=== PATIENT | female | born 1930 | race Caucasian/White ===

== ENCOUNTER 2016-07-08 14:51 | Observation (INO) ==
[2016-07-08] MEDS ORDERED: Naloxone 0.4 MG/ML INJ IVP PRN (18:31)
[2016-07-08] MEDS ORDERED: Ondansetron 4 MG/2 ML VIAL IVP PRN (18:31)
[2016-07-08] MEDS ORDERED: Acetaminophen 325 MG TABLET PO PRN (18:31)
--- NOTE | 2016-07-08 19:08 | Internal Med History&Physical ---
Date of Encounter: 07/08/16 Time of Encounter: 18:15 Internal Medicine - H&P: HPI Chief complaint: right lower extremity pain after a fall. Admitted From: Intrahospital Transfer Plans for Post Hospital Care: Transfer Snf Facility History of present illness: Ms. Macedo is a 86 year old female relatively healthy female (besides a few stabkle comorbidities) was transfered from [facility] where she was initially evaluated after a fall at [facility]. She says her leg just gave ways and she collapsed, knocking her right lower extremity to the ground. She did not lose consciousness, but was unable to arise from the fallen position. She did not hit her head. No chest pain pain, palpitation, SOB or dizziness, no diaphoresis , nausea or vomiting. No recent illness. She is being treated with Carbamazepine ER for trigeminal neuralgia. She did not not have facial pain at the time of collapse. She is FULL CODE as per discussion. She nominates her , James Mann as her NOK/POA, however, as is legally deaf, his son Kimani ([phone]) will be her emergency contact. Orthopedic surgery has been contacted, the surgeon recommends consulting podiatry rather. Medical history: Reports: arthritis, CHF, hypertension, trigeminal neuralgia, history of anemia Surgical history: Reports: appendectomy, cholecystectomy, hysterectomy Psychiatric history: Reports: anxiety Smoking Status: Never smoker Smokeless Tobacco Status: No Alcohol use: Reports: none Drug use: Reports: none Family history: Unable to obtain, patient is in pain. ROS: A 10-point ROS was performed, positives and relevant negatives are detailed, system-symptom not mentioned is assumed negative unless otherwise stated. Vital Signs Temperature 98.1 F 07/08/16 12:59 Pulse Rate 91 07/08/16 12:59 Respiratory Rate 20 07/08/16 12:59 Blood Pressure 179/134 07/08/16 12:59 O2 Sat by Pulse Oximetry 97 07/08/16 12:59 Temperature 98.1 F 07/08/16 13:05 Pulse Rate 78 07/08/16 14:44 Respiratory Rate 17 07/08/16 14:44 Blood Pressure 172/87 07/08/16 14:44 O2 Sat by Pulse Oximetry 94 L 07/08/16 14:44 O/E Acutely distressed patient, from pain. Elderly HEENT: not pale, anicteric, afebrile, acyanotic., trachea is central, no JVD, no cervical or jugular lymphadenopathy. Chest: CTAB, Heart: RRR, HS1/2, no murmur Abdomen: soft, vague epigastric tenderness, not distended. 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 Skin: No active skin lesion Extremities: right akle in a splint, digital cappillary refill<2 sec. Lab Results 07/08/16 07/08/16 07/08/16 Range/Units 13:12 13:12 13:12 WBC 4.5 (4.3-11.1) K/mcL RBC 3.80 L (3.82-4.97) M/mcL Hgb 11.8 (11.5-15.4) g/dL Hct 35.2 L (35.3-44.9) % MCV 92.6 (83.0-100.0) fL MCH 31.1 (28.0-33.3) pg MCHC 33.5 (31.6-35.5) g/dL RDW 12.0 (11.5-14.5) % Plt Count 183 (140-400) K/mcL MPV 10.1 (9.4-12.4) fL Immature Gran % 0.4 (0-4) % Seg Neutrophils % 71.5 % Lymphocytes % 17.6 % Monocytes % 7.1 % Eosinophils % 2.7 % Basophils % 0.7 % Neutrophils # 3.2 (1.6-8.9) K/mcL Lymphocytes # 0.8 (0.6-4.6) K/mcL Monocytes # 0.3 (0.0-1.3) K/mcL Eosinophils # 0.1 (0.0-0.6) K/mcL Basophils # 0.0 (0.0-0.2) K/mcL PT 10.8 (9.4-12.1) Seconds INR 1.0 APTT 32.4 (26.0-36.0) Seconds Sodium 143 (136-145) mEq/L Potassium 3.0 L (3.5-4.5) mEq/L Chloride 103 (98-109) mEq/L Carbon Dioxide 26 (19-29) mEq/L BUN 19 (7-20) mg/dL Creatinine 1.24 H (0.57-1.11) mg/dL Est GFR ( Amer) 50 L (> 60) Est GFR (Non-Af Amer) 41 L (> 60) BUN/Creatinine Ratio 15 (6-26) Glucose 108 H (70-99) mg/dL Calculated Osmolality 299 (280-300) Calcium 9.3 (8.6-10.8) mg/dL Troponin I (0-0.03) ng/mL 07/08/16 Range/Units 13:12 WBC (4.3-11.1) K/mcL RBC (3.82-4.97) M/mcL Hgb (11.5-15.4) g/dL Hct (35.3-44.9) % MCV (83.0-100.0) fL MCH (28.0-33.3) pg MCHC (31.6-35.5) g/dL RDW (11.5-14.5) % Plt Count (140-400) K/mcL MPV (9.4-12.4) fL Immature Gran % (0-4) % Seg Neutrophils % % Lymphocytes % % Monocytes % % Eosinophils % % Basophils % % Neutrophils # (1.6-8.9) K/mcL Lymphocytes # (0.6-4.6) K/mcL Monocytes # (0.0-1.3) K/mcL Eosinophils # (0.0-0.6) K/mcL Basophils # (0.0-0.2) K/mcL PT (9.4-12.1) Seconds INR APTT (26.0-36.0) Seconds Sodium (136-145) mEq/L Potassium (3.5-4.5) mEq/L Chloride (98-109) mEq/L Carbon Dioxide (19-29) mEq/L BUN (7-20) mg/dL Creatinine (0.57-1.11) mg/dL Est GFR ( Amer) (> 60) Est GFR (Non-Af Amer) (> 60) BUN/Creatinine Ratio (6-26) Glucose (70-99) mg/dL Calculated Osmolality (280-300) Calcium (8.6-10.8) mg/dL Troponin I 0.00 (0-0.03) ng/mL Ankle X-Ray 07/08/16 12:59 No acute bony abnormalities. Diffuse subcutaneous edema about the ankle, nonspecific. Diffuse bone demineralization. Degenerative changes to the midfoot. Ankle X-Ray 07/08/16 12:59 Acute traumatic closed fracture dislocation of the ankle mortise. Associated soft tissue swelling and subcutaneous edema. Diffuse bone demineralization. Degenerative changes to the midfoot. Knee X-Ray 07/08/16 12:59 No evidence of fracture on the right. Questionable finding on the left in the lateral view involving the posterior aspect of the lateral tibial plateau. If patient has significant left knee pain or focal tenderness in this area, further evaluation with CT may be helpful. Ankle X-Ray 07/08/16 14:18 Interval reduction of acute ankle fracture-dislocation with near anatomic alignment. IMP Fracture dislocation of right ankle mortise, s/p closed reduction Mechanical fall Prabable preceding vagal episode or dependent venous pooling causing collapse Hypokalemia Chronic morbidities Hypertension Chronic gravitation edema Trigeminal neuralgia Osteoporosis PLAN Admit Optimal pain control Consult podiatry and orthopedic surgery DVT/GI prophylaxis Replete potassium العراقي catheter. Continue other medications of chronic morbidities. Past Med Surg Social Fam HX - Past Medical History Medical history: arthritis, CHF, hypertension, other Psychiatric history: anxiety - Past Surgical History Surgical History: appendectomy, cholecystectomy, hysterectomy - Social History Smoking Status: Never smoker Smokeless Tobacco Status: No Alcohol use: none Drug use: none Internal Medicine - H&P: Meds Furosemide [Lasix] 20 mg PO QPM 07/07/15 [History] Lisinopril [Zestril] 40 mg PO DAILY 07/07/15 [History] Potassium Chloride [Klor-Con Sprinkle] 10 meq PO DAILY 07/07/15 [History] Amlodipine [Norvasc] 7.5 mg PO DAILY 06/16/16 [History] CarBAMazepine [Carbamazepine ER] 400 mg PO Q12H 07/08/16 [History] Furosemide [Lasix] 40 mg PO QAM 07/08/16 [History] Tramadol HCl [Ultram] 50 mg PO TID PRN 07/08/16 [History] Allergies baclofen Allergy (Verified 07/08/16 15:14) Hives clindamycin Allergy (Verified 07/08/16 15:14) Hives clonidine Allergy (Verified 07/08/16 15:14) Hives codeine Allergy (Verified 07/08/16 15:14) Hives hydrocodone [From Vicodin] Allergy (Verified 07/08/16 15:14) Hives lovastatin Allergy (Verified 07/08/16 15:14) Hives gabapentin Adverse Reaction (Verified 06/16/16 00:22) Shakiness All Systems PM: A 10-system review of systems was performed and is negative for pertinent findings except as documented above in the HPI. - Constitutional Vitals: Temp Pulse Resp BP Pulse Ox 98 F 97 18 170/97 95 07/08/16 16:36 07/08/16 16:36 07/08/16 16:36 07/08/16 16:36 07/08/16 16:36
[2016-07-08] MEDS ORDERED: *HR* OxyCODONE Immed Rel 5 MG TABLET PO SCH (20:00)
[2016-07-08] MEDS ORDERED: traMADol 50 MG TABLET PO SCH (21:00)
[2016-07-08] MEDS: carBAMazepine 200 MG TABLET PO SCH (21:20)
[2016-07-08] MEDS: *HR* HYDROmorphone (PF) 1 MG/ML SYRINGE IVP PRN (22:41)
[2016-07-09] MEDS: *HR* HYDROmorphone (PF) 1 MG/ML SYRINGE IVP PRN ×2 (02:54→20:43)
[2016-07-09] MEDS: traMADol 50 MG TABLET PO PRN (06:18)
[2016-07-09 06:20] LABS: Basophils % 0.4 %; Eosinophils # 0.1 K/mcL (0.0-0.6); Eosinophils % 1.9 %; Hematocrit 32.6 % (35.3-44.9); Hemoglobin 10.6 g/dL (11.5-15.4); Immature Granulocytes % 0.2 % (0-4); Lymphocytes # 0.5 K/mcL (0.6-4.6); Mean Corpuscular HGB Conc 32.5 g/dL (31.6-35.5); Mean Corpuscular Hemoglobin 30.4 pg (28.0-33.3); Mean Corpuscular Volume 93.4 fL (83.0-100.0); Monocytes # 0.5 K/mcL (0.0-1.3); Monocytes % 10.6 %; Neutrophils # 3.6 K/mcL (1.6-8.9); Platelet Count 154 K/mcL (140-400); Red Blood Count 3.49 M/mcL (3.82-4.97); Red Cell Distribution Width 12.1 % (11.5-14.5); Segmented Neutrophils % 76.9 %
[2016-07-09] MEDS: carBAMazepine 200 MG TABLET PO SCH ×2 (06:24→19:12)
[2016-07-09 06:32] LABS: BUN/Creatinine Ratio 16 (6-26); Blood Urea Nitrogen 14 mg/dL (7-20); Calcium 8.9 mg/dL (8.6-10.8); Carbon Dioxide 29 mEq/L (19-29); Chloride 106 mEq/L (98-109); Glucose 126 mg/dL (70-99); Osmolality,Calculated 300 (280-300); Potassium 3.6 mEq/L (3.5-4.5); Sodium 144 mEq/L (136-145); eGFR For African Americans > 60 (> 60); eGFR For Non-African Americans > 60 (> 60)
[2016-07-09 06:45] LABS: Prothrombin Time 10.4 Seconds (9.4-12.1)
[2016-07-09 06:48] LABS: Activated Partial Thrombo Time 30.6 Seconds (26.0-36.0)
[2016-07-09] MEDS: Lisinopril 20 MG TABLET PO SCH (08:24)
[2016-07-09] MEDS: Famotidine 20 MG TABLET PO SCH (08:24)
[2016-07-09] MEDS: Furosemide 40 MG TABLET PO SCH (08:24)
[2016-07-09] MEDS: amLODIPine 5 MG TABLET PO SCH (08:25)
[2016-07-09] MEDS: *HR* Heparin 5,000 UNIT/ML VIAL SQ SCH ×2 (08:36→21:30)
--- NOTE | 2016-07-09 10:06 | Internal Med Progress Note ---
Date of Encounter: 07/09/16 Time of Encounter: 10:03 - Assessment and plan (1) Fracture dislocation of right ankle Current Visit: No Status: Acute Assessment and plan: Continue pain control Patient scheduled for surgical correction by Podiatry later today PT/OT after surgery supportive care (2) Fall Current Visit: Yes Status: Acute Assessment and plan: maintain fall precautions PT/OT eval after surgery Qualifiers: Encounter type: initial encounter Qualified Code(s): W19.XXXA - Unspecified fall, initial encounter (3) Hypertension Current Visit: Yes Status: Chronic Assessment and plan: BP within acceptable range continue home medications Qualifiers: Hypertension type: essential hypertension Qualified Code(s): I10 - Essential (primary) hypertension (4) Osteoporosis Current Visit: Yes Status: Chronic (5) Trigeminal neuralgia Current Visit: Yes Status: Chronic Assessment and plan: continue home medications (6) Hypokalemia Current Visit: Yes Status: Resolved Assessment and plan: continue to monitor electrolytes and replace as needed (7) DVT prophylaxis Current Visit: Yes Status: Acute Assessment and plan: Heparin SQ (8) CHF (congestive heart failure) Current Visit: Yes Status: Chronic Assessment and plan: Not in acute exacerbation continue home medications Qualifiers: Congestive heart failure type: unspecified congestive heart failure type Congestive heart failure chronicity: chronic Qualified Code(s): I50.9 - Heart failure, unspecified - Subjective Interval history: Patient seen and examined at bedside. Resting in bed, states the pain is currently well controlled. Podiatry to take patient to the OR later today. - Constitutional Vitals: Temp Pulse Resp BP Pulse Ox 97.7 F 78 16 139/75 93 L 07/09/16 06:49 07/09/16 06:49 07/09/16 06:49 07/09/16 06:49 07/09/16 06:49 General appearance: Present: A&O X 3, no acute distress (drowsy from the pain medications), answers questions appropriately - Head Head exam: Present: atraumatic, normocephalic - Eye Eye exam: Present: normal appearance, conjuntiva pink, sclera anicteric - Respiratory Respiratory exam: Present: CTAB. Absent: respiratory distress, wheezes - Cardiovascular Cardiovascular exam: Present: RRR, +S1, +S2 - GI/Abdominal GI/Abdominal exam: Present: normal bowel sounds, soft. Absent: distended, tenderness - Extremities Exam Extremities exam: Present: warm, radial pulses palpable and symetrical. Absent : pedal edema (RLE placed in cast/splint) - Neurological Exam Neurological exam: Present: alert, oriented X3 - Psychiatric Psychiatric exam: Present: normal affect, normal mood Internal Medicine: Result - Labs CBC & Chem 7: 07/09/16 05:52 07/09/16 05:52 Labs: Short CBC 07/09/16 Range/Units 05:52 WBC 4.7 (4.3-11.1) K/mcL Hgb 10.6 L (11.5-15.4) g/dL Hct 32.6 L (35.3-44.9) % Plt Count 154 (140-400) K/mcL Neutrophils # 3.6 (1.6-8.9) K/mcL BMP 07/09/16 05:52 Sodium 144 Potassium 3.6 Chloride 106 Carbon Dioxide 29 BUN 14 Creatinine 0.86 Glucose 126 H Calcium 8.9 - ABG Interpretation ABG results: PT/INR, D-dimer PT 10.4 Seconds (9.4-12.1) 07/09/16 05:52 Consult Discharge Plan - Plan Referrals: Estrada Hooper DO [Primary Care Provider] -
--- NOTE | 2016-07-09 12:08 | Podiatry Consult Note ---
Date of Encounter: 07/09/16 Time of Encounter: 12:04 Assessment and Plan (1) Fracture dislocation of right ankle Current visit: No Status: Acute The patient and her and son who are at bedside were instructed that she needs open reduction, internal fixation. The patient and her family relates that she does not significant amount of walking and would like to return to her walking status if possible. I instructed the patient that due to her age there are inherent risks with surgical intervention. The patient relates that she would like her ankle fixed that she could continue walking. I explained that if she does not have it fixed there is significant chances of severe arthritis and nonhealing. I also instructed that with surgery there are also risks but that if we fixate the ankle she has a better chance of having mobility after surgery. The surgery discussed was open reduction, internal fixation of the right ankle fracture.Patient was informed of the risks and complications of surgery. These may include but are not limited to the following; nerve damage, numbness, tingling, RSD/CRPS, loss of motor function, loss of toe, loss of limb , loss of life, ischemia, wound healing issues, infection, scarring, keloid formation, continued pain, arthritis, non-union, mal-union, prominent hardware, displaced hardware, reaction to hardware, the need to remove hardware, bruising , continued limp, the need for future surgery, over correction, under correction , chronic swelling, the need for physical therapy, stiffness of joints, ulceration, slow healing, wound dehiscence, reaction to implant, reaction to sutures. The patient was informed of the possible conservative treatments available which may include but are not limited to the following: Orthotics, bracing, non -weight bearing, physical therapy, padding, taping, steroid injections, NSAIDS, casting. The patient was given the option to seek a second opinion. It was explained that surgery is an art and not an exact science therefore results cannot be guaranteed. All the patients questions and concerns were addressed. Patient agrees to have the surgery despite the possible risks and complications. Absolutely no guarantees were given or implied. History of Present Illness Chief complaint: right ankle fracture HPI: Ms. Macedo is a 86 year old female who was walking through [employer] and into her ankle. Patient relates that her hurt severely. Patient relates that she was told that she fractured it. Past Med Surg Social Fam HX - Past Medical History Medical history: arthritis, CHF, hypertension, other Psychiatric history: anxiety - Past Surgical History Surgical History: appendectomy, cholecystectomy, hysterectomy - Social History Smoking Status: Never smoker Smokeless Tobacco Status: No Alcohol use: none Drug use: none Medications and Allergies Furosemide [Lasix] 20 mg PO QPM 07/07/15 [History] Lisinopril [Zestril] 40 mg PO DAILY 07/07/15 [History] Potassium Chloride [Klor-Con Sprinkle] 10 meq PO DAILY 07/07/15 [History] Amlodipine [Norvasc] 7.5 mg PO DAILY 06/16/16 [History] CarBAMazepine [Carbamazepine ER] 400 mg PO Q12H 07/08/16 [History] Furosemide [Lasix] 40 mg PO QAM 07/08/16 [History] Tramadol HCl [Ultram] 50 mg PO TID PRN 07/08/16 [History] Allergies baclofen Allergy (Verified 07/08/16 15:14) Hives clindamycin Allergy (Verified 07/08/16 15:14) Hives clonidine Allergy (Verified 07/08/16 15:14) Hives codeine Allergy (Verified 07/08/16 15:14) Hives hydrocodone [From Vicodin] Allergy (Verified 07/08/16 15:14) Hives lovastatin Allergy (Verified 07/08/16 15:14) Hives gabapentin Adverse Reaction (Verified 06/16/16 00:22) Shakiness All Systems Reviewed: A 10-system review of systems was performed and is negative for pertinent findings except as documented above in the HPI. Physical Exam - Constitutional Vitals: Temp Pulse Resp BP Pulse Ox 98.0 F 61 18 171/77 96 07/09/16 11:14 07/09/16 11:14 07/09/16 11:14 07/09/16 11:14 07/09/16 11:14 Exam: The patient is awake, alert, and oriented 3. The patient has pain with palpation to the right ankle. The right ankle is currently in a posterior splint. Capillary fill time is intact to the digits. No open lesions are visible however the splint was left intact for some stability. Radiographic exam demonstrates a bimalleolar ankle fracture with significant dislocation. Severe osteopenia is noted. Results - Labs Result Diagrams: 07/09/16 05:52 07/09/16 05:52 Labs: Abnormal lab results RBC 3.49 M/mcL (3.82-4.97) L 07/09/16 05:52 Hgb 10.6 g/dL (11.5-15.4) L 07/09/16 05:52 Hct 32.6 % (35.3-44.9) L 07/09/16 05:52 Lymphocytes # 0.5 K/mcL (0.6-4.6) L 07/09/16 05:52 Glucose 126 mg/dL (70-99) H 07/09/16 05:52 H & H 07/09/16 Range/Units 05:52 Hgb 10.6 L (11.5-15.4) g/dL Hct 32.6 L (35.3-44.9) % All other labs normal. Consult Discharge Plan - Plan Referrals: Estrada Hooper DO [Primary Care Provider] -
[2016-07-09] MEDS ORDERED: Bupivacaine/Clonidine Syringe 1 EACH SYRINGE ONE (15:33)
--- NOTE | 2016-07-09 15:34 | Anesthesia Evaluation PreOp ---
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 (trigeminal neuralgia) Other Medical History: Other (oa) Anesthesia History: No Prior Anesthetic Complications, Past Anesthesia (appy, cholecyst, hysterect) Alcohol Use: none Drug use: none Medications and Allergies Furosemide [Lasix] 20 mg PO QPM 07/07/15 [History] Lisinopril [Zestril] 40 mg PO DAILY 07/07/15 [History] Potassium Chloride [Klor-Con Sprinkle] 10 meq PO DAILY 07/07/15 [History] Amlodipine [Norvasc] 7.5 mg PO DAILY 06/16/16 [History] CarBAMazepine [Carbamazepine ER] 400 mg PO Q12H 07/08/16 [History] Furosemide [Lasix] 40 mg PO QAM 07/08/16 [History] Tramadol HCl [Ultram] 50 mg PO TID PRN 07/08/16 [History] Allergies baclofen Allergy (Verified 07/08/16 15:14) Hives clindamycin Allergy (Verified 07/08/16 15:14) Hives clonidine Allergy (Verified 07/08/16 15:14) Hives codeine Allergy (Verified 07/08/16 15:14) Hives hydrocodone [From Vicodin] Allergy (Verified 07/08/16 15:14) Hives lovastatin Allergy (Verified 07/08/16 15:14) Hives gabapentin Adverse Reaction (Verified 06/16/16 00:22) Shakiness Anesthesia Results - Labs 07/09/16 05:52 07/09/16 05:52 - Imaging EKG: report reviewed (sb)
--- NOTE | 2016-07-09 15:37 | Anesthesia Evaluation PreOp ---
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 (trigeminal neuralgia) Other Medical History: Other (oa) Anesthesia History: No Prior Anesthetic Complications, Past Anesthesia Alcohol Use: none Drug use: none Medications and Allergies Furosemide [Lasix] 20 mg PO QPM 07/07/15 [History] Lisinopril [Zestril] 40 mg PO DAILY 07/07/15 [History] Potassium Chloride [Klor-Con Sprinkle] 10 meq PO DAILY 07/07/15 [History] Amlodipine [Norvasc] 7.5 mg PO DAILY 06/16/16 [History] CarBAMazepine [Carbamazepine ER] 400 mg PO Q12H 07/08/16 [History] Furosemide [Lasix] 40 mg PO QAM 07/08/16 [History] Tramadol HCl [Ultram] 50 mg PO TID PRN 07/08/16 [History] Allergies baclofen Allergy (Verified 07/08/16 15:14) Hives clindamycin Allergy (Verified 07/08/16 15:14) Hives clonidine Allergy (Verified 07/08/16 15:14) Hives codeine Allergy (Verified 07/08/16 15:14) Hives hydrocodone [From Vicodin] Allergy (Verified 07/08/16 15:14) Hives lovastatin Allergy (Verified 07/08/16 15:14) Hives gabapentin Adverse Reaction (Verified 06/16/16 00:22) Shakiness - Meds/Allergy Pre-op Review Medications Reviewed: Yes Allergies Reviewed: Yes Beta Blockers on Current Med List: No Anesthesia Results - Labs 07/09/16 05:52 07/09/16 05:52 - Imaging EKG: report reviewed (sb) Anesthesia Exam Height: 1.57 Weight: 74 NPO (# of Hours): >8 - HEENT Pupil (Motor): Pupils equal, EOMI Mallampati: II Teeth: Poor dentition Oral Opening: Less than or equal to 3 - PHYSICAL FITNESS TEACHER LOC: Oriented (pt is oriented to person/place/time/procedure) PHYSICAL FITNESS TEACHER Motor: Deficit RUE, Deficit LUE, Deficit RLE, Deficit LLE, Deficit Face PHYSICAL FITNESS TEACHER Sensory: Deficit: RUE, LUE, RLE, LLE, Face - Cardiac Rhythm: Regular Murmur: None - Pulmonary Breath Sounds: bilateral Clear Respiratory Effort: Symmetrical Anesthesia Assess/Plan ASA Score: 3 Modified [place] Scale for Level of Consciousness: Cooperative, oriented, and tranquil Anesthetic Plan: Regional Monitoring Plan: Standard Monitors Recovery Plan: Other
[2016-07-09] MEDS ORDERED: *HR* Midazolam HCl 2 MG/2 ML VIAL ONE (15:50)
[2016-07-09] MEDS ORDERED: *HR* Propofol 200 MG/20 ML VIAL IVP ONE ×2 (15:54→16:36)
--- NOTE | 2016-07-09 16:03 | Anesthesia Procedures ---
Date of Encounter: 07/09/16 Time of Encounter: 16:01 Procedures: Anesthesia - Nerve Block Procedure Date: 07/09/16 Time: 16:01 Allergies/Adv Reactions: see chart Pre-op Diagnosis: r ankle fx Surgical Procedure: r ankle orif Checklist: Correct Patient Identifier, Correct procedure, History checked Correct side: Right Blood Thinner: No Monitor Applied: EKG, BP, Pulse Oximetry Supplemental Oxygen via Nasal Cannula (L/min): 2 Sedation: Versed (mg): 2 Indication: Primary Anesthesia Block Type: Popliteal (40), Other (saph/5) Catheter placed: No Sterile Technique: Yes Ultrasound used: Yes Anatomy identified: Yes Visual spread of Local: Yes Neuro Stimulation: No Blood on Needle Aspiration: No Smooth Injection of Local: Yes Pain with Injection of Local: No Prep: Chlorhexadine Needle: 21 x 100 mm Stimuplex Local: 0.25% Bupivicaine w/Clonidine 20 mcg/cc Volume (cc): 45 Number of Attempts: 1 Complications: None/effective block Vitals: see rn note Comments: Block performed by ASSOCIATE TEAM PHYSICIAN Barreto
[2016-07-09] MEDS: Ringers Solution, Lactated 1,000 ML IVC SCH (16:04)
[2016-07-09] MEDS ORDERED: *HR* FentaNYL (PF) 100 MCG/2 ML VIAL ONE (17:40)
--- NOTE | 2016-07-09 18:44 | Anesthesia Evaluation Post Op ---
Date of Encounter: 07/09/16 Time of Encounter: 18:43 - Vital Signs Vital Signs: Vital Signs/O2 Sat/Glucose, Most Current Temp Pulse Resp BP Pulse Ox 07/09/16 18:36 60 14 110/63 94 L 07/09/16 18:26 97.2 F L 62 14 120/65 93 L 07/09/16 18:16 67 14 114/65 94 L 07/09/16 18:06 67 16 114/70 92 L 07/09/16 17:56 97.0 F L 84 16 138/89 95 - Lungs Lungs: Clear Ascult./Percussion - Airway Airway: Non-obstructed - Cardiovascular Regular Rate - Mental Status Mental Status: Asleep with brisk response to light stimulation - Pain Pain Scale: 2 - Nausea Vomiting Nausea Vomiting: Not Present - Hydration Hydration: NPO Notes: 07/09/16 18:[address] on pulse ox overnight with NC titrate >92% - Discharge PostOp Status: Transfer Patient to floor
[2016-07-09] MEDS: Furosemide 20 MG TABLET PO SCH (19:12)
--- NOTE | 2016-07-09 22:01 | Operative Note ---
Date of procedure: 07/09/16 Pre-op diagnosis: right ankle subluxation/dislocation fracture, bimalleolar Post-op diagnosis: same Procedure: Open reduction, internal fixation of bimalleolar ankle fracture with repair of subluxation/syndesmotic repair. Implants: Chivo plates and screws. Complications: None, other than soft bone and significant osteoporosis. Anesthesia: [facility] [place] Surgeon: Gabe Byrd Estimated blood loss (cc): 10 Condition: stable Disposition: PACU Procedure in Detail: The patient was administered IV antibiotics. The patient was transported to the operative room and placed on operating table in the supine position. Following general anesthesia the foot was scrubbed prepped and draped in the usual aseptic fashion. A timeout was performed. The lower extremity was raised to 60 degrees for hemostasis and exsanguinated utilizing an Esmarch bandage. The pneumatic tourniquet was inflated. The leg was lowered to the table. There is noted to be small fracture blister formation along the lateral aspect of the ankle. The blisters were avoided as much as possible although the proximal aspect of the incision did partially contact the fracture blister. An incision was made and deepened through subcutaneous tissue with care taken to identify and retract all vital neurovascular structures.the fracture of the fibula was identified and noted to be oblique in nature. The site was reduced utilizing lobster claw and stabilized utilizing temporary fixating K wires. A neutralization plate was then applied. The bone was noted to be significantly soft consistent with end-stage osteoporosis. After the neutralization plate was applied the syndesmosis was then tested and noted to be insufficient. A syndesmotic screw was then placed to repair the syndesmosis. 3 other syndesmotic screws were placed in an attempt to build a more stable construct from her significantly poor bone quality. An incision was made over the medial malleolus and deepened through subcutaneous tissues with care taken to identify and retract all vital neurovascular structures. The medial malleolus was reduced and reduction was maintained utilizing 2 screw fixation. The bone at the medial malleolus was noted to be significantly soft as well. The incision sites were then irrigated with copious amounts of normal saline and closed in a layered fashion. A dry sterile dressing was applied. The pneumatic tourniquet was deflated and a hyperemic response was noted to all digits. The patient was placed in a posterior splint. The patient tolerated the procedure and anesthesia well and was transported to the recovery room with vital signs stable and vascular status intact to both feet. The patient will be readmitted to the floor until she is stable to return home The patient will keep the dressings clean, dry, intact until the follow-up appointment in 1-2 weeks. The patient's weightbearing status will be strict nonweightbearing. The patient would benefit from a short course of oral antibiotics due to the fracture blister formation.
[2016-07-10] MEDS: *HR* HYDROmorphone (PF) 1 MG/ML SYRINGE IVP PRN ×3 (04:21→23:55)
[2016-07-10] MEDS: *HR* Heparin 5,000 UNIT/ML VIAL SQ SCH ×2 (05:50→17:05)
[2016-07-10] MEDS: carBAMazepine 200 MG TABLET PO SCH ×2 (05:53→17:02)
[2016-07-10] MEDS: Ringers Solution, Lactated 1,000 ML IVC SCH (05:58)
[2016-07-10 06:07] LABS: Basophils % 0.3 %; Eosinophils # 0.1 K/mcL (0.0-0.6); Eosinophils % 2.3 %; Hematocrit 31.8 % (35.3-44.9); Hemoglobin 10.4 g/dL (11.5-15.4); Immature Granulocytes % 0.3 % (0-4); Lymphocytes # 0.5 K/mcL (0.6-4.6); Lymphocytes % 7.9 %; Mean Corpuscular HGB Conc 32.7 g/dL (31.6-35.5); Mean Corpuscular Hemoglobin 30.8 pg (28.0-33.3); Mean Corpuscular Volume 94.1 fL (83.0-100.0); Mean Platelet Volume 10.3 fL (9.4-12.4); Monocytes # 0.6 K/mcL (0.0-1.3); Neutrophils # 4.9 K/mcL (1.6-8.9); Platelet Count 156 K/mcL (140-400); Red Blood Count 3.38 M/mcL (3.82-4.97); Red Cell Distribution Width 11.9 % (11.5-14.5); Segmented Neutrophils % 79.2 %
[2016-07-10 06:23] LABS: BUN/Creatinine Ratio 13 (6-26); Blood Urea Nitrogen 11 mg/dL (7-20); Calcium 8.9 mg/dL (8.6-10.8); Carbon Dioxide 26 mEq/L (19-29); Chloride 105 mEq/L (98-109); Glucose 103 mg/dL (70-99); Magnesium 1.6 mg/dL (1.6-2.6); Osmolality,Calculated 296 (280-300); Phosphorous 3.2 mg/dL (2.3-4.7); Potassium 3.3 mEq/L (3.5-4.5); Sodium 143 mEq/L (136-145); eGFR For African Americans > 60 (> 60); eGFR For Non-African Americans > 60 (> 60)
[2016-07-10] MEDS: Furosemide 40 MG TABLET PO SCH (08:08)
[2016-07-10] MEDS: amLODIPine 5 MG TABLET PO SCH (08:08)
[2016-07-10] MEDS: Lisinopril 20 MG TABLET PO SCH (08:08)
[2016-07-10] MEDS: Famotidine 20 MG TABLET PO SCH (08:09)
[2016-07-10] MEDS: Furosemide 20 MG TABLET PO SCH (17:02)
--- NOTE | 2016-07-10 17:05 | Podiatry Progress Note ---
Date of Encounter: 07/10/16 Time of Encounter: 12:00 - Assessment and Plan (1) Fracture dislocation of right ankle Current Visit: No Status: Acute Examined at bedside Dressing and splint intact Leave dressing intact at this time Patient ok to discharge per podiatry Please send with Bactrim DS BID x10 days PO- fracture blisters present Follow up in clinic in 1 week Patient awaiting ECF placement- spoke with SW- family meeting at 3pm Non weight bearing to RLE While in bed elevate RLE above level of heart Monitor for pressure to heel Call with any fevers, chills or flu like symptoms Call with any operative site complications Subjective Interval history: Day #1 post op Open reduction, internal fixation of bimalleolar ankle fracture with repair of subluxation/syndesmotic repair with Dr. Byrd. Patient resting comfortably at this time, just up to BSC and returned to bed. Complains of pain, vague and states her "whole body hurts" Dressing intact to surgical site, posterior splint intact. at bedside. Patient denies any fevers, chills, flu like symptoms or calf pain. Objective - Vital Signs Vital Signs: Vital Signs Temp Pulse Resp BP Pulse Ox 07/10/16 16:05 97.9 F 71 22 145/75 97 07/10/16 10:57 98.5 F 73 16 139/79 95 07/10/16 07:21 98.2 F 58 16 157/78 95 07/10/16 05:17 98.0 F 55 17 136/69 93 L 07/10/16 01:09 98.0 F 54 17 155/81 97 07/09/16 22:03 97 07/09/16 18:54 97.9 F 63 17 155/73 95 07/09/16 18:44 97.0 F L 63 14 112/66 96 07/09/16 18:36 60 14 110/63 94 L 07/09/16 18:26 97.2 F L 62 14 120/65 93 L 07/09/16 18:16 67 14 114/65 94 L 07/09/16 18:06 67 16 114/70 92 L 07/09/16 17:56 97.0 F L 84 16 138/89 95 Intake and Output 07/10/16 07/10/16 07/10/16 07:59 15:59 23:59 Intake Total 1000 / 1000 120 / 120 200 / 200 Output Total 1350 / 1350 450 / 450 Balance 1000 / 1000 -1230 / -1230 -250 / -250 Intake: IV Fluids 1000 / 1000 Lactated Ringers 1,000 ML 1000 / 1000 @ 20 mls/hr IVC .Q24H CLAUDIA Rx#:[id number] Oral 120 / 120 200 / 200 Output: Urine 1350 / 1350 450 / 450 Other: # Voids 1 - Exam Exam: Podiatry General Exam: General appearance: alert awake oriented X 3. Calm and pleasant, no acute distress.. Vascular: Pedal pulses +2/4 DP/PT , No evidence of cyanosis, pallor or rubor, Edema graded at 1+/4, Skin Temperature warm, No calf pain with manual compression. capillary refill time is immediate to digits. Neurologic: Sensation intact with light touch to foot. . Slight movement intact to toes Postop Exam: Dressing and posterior splint to remain intact at this time. Cap refill time <3 seconds to toes, sensation intact, movement intact. All as expected. No calf pain with manual compression Toes warm to touch - Lab Result Diagrams: 07/11/16 04:41 07/11/16 04:41 Labs: Abnormal lab results RBC 3.38 M/mcL (3.82-4.97) L 07/10/16 05:44 Hgb 10.4 g/dL (11.5-15.4) L 07/10/16 05:44 Hct 31.8 % (35.3-44.9) L 07/10/16 05:44 Lymphocytes # 0.5 K/mcL (0.6-4.6) L 07/10/16 05:44 Potassium 3.3 mEq/L (3.5-4.5) L 07/10/16 05:44 Glucose 103 mg/dL (70-99) H 07/10/16 05:44 - VTE Documentation of Mechanical Device: Intermittent pneumatic compression device Consult Discharge Plan - Plan Additional Instructions: Please follow up with podiatry within 1 week after discharge. leave Dressing intact until your follow-up with podiatry. Please take Bactrim twice a day for total of 10 days as recommended by podiatry. follow up with her primary care physician within one week after discharge from the hospital. Please continue all usual medications as prescribed by her primary care physician. Referrals: Estrada Hooper DO [Primary Care Provider] - 10/14/16 1:00 pm Prescriptions: RX: OxyCODONE/APAP 5/325 [Percocet 5/325 MG] 1 each PO Q4HR PRN #30 tablet PRN Reason: Severe Pain Sennosides/Docusate Sodium [Senna Plus] 2 each PO BID PRN #30 tablet PRN Reason: Constipation Sulfamethoxazole/Trimeth DS [Bactrim DS] 1 each PO BID #20 tablet
--- NOTE | 2016-07-10 17:09 | Internal Med Progress Note ---
Date of Encounter: 07/10/16 Time of Encounter: 10:20 - Assessment and plan (1) Fracture dislocation of right ankle Current Visit: No Status: Acute Assessment and plan: Continue pain control S/P ORIF of bimalleolar ankle fracture with repair of subluxation/syndesmotic repair by podiatry. POD 1 patient tolerated the procedure well Podiatry consultation appreciated. PT/OT: SNF placement Social work consulted for rehab placement supportive care d/c pending rehab placement (2) Fall Current Visit: Yes Status: Acute Assessment and plan: maintain fall precautions PT/OT eval: SNF placement Qualifiers: Encounter type: initial encounter Qualified Code(s): W19.XXXA - Unspecified fall, initial encounter (3) Hypertension Current Visit: Yes Status: Chronic Assessment and plan: BP within acceptable range continue home medications Qualifiers: Hypertension type: essential hypertension Qualified Code(s): I10 - Essential (primary) hypertension (4) Osteoporosis Current Visit: Yes Status: Chronic (5) Trigeminal neuralgia Current Visit: Yes Status: Chronic Assessment and plan: continue home medications (6) Hypokalemia Current Visit: Yes Status: Resolved Assessment and plan: continue to monitor electrolytes and replace as needed (7) DVT prophylaxis Current Visit: Yes Status: Acute Assessment and plan: Heparin SQ (8) CHF (congestive heart failure) Current Visit: Yes Status: Chronic Assessment and plan: Not in acute exacerbation continue home medications Qualifiers: Congestive heart failure type: unspecified congestive heart failure type Congestive heart failure chronicity: chronic Qualified Code(s): I50.9 - Heart failure, unspecified - Subjective Interval history: Patient seen and examined at bedside. Resting in bed, states the pain is currently well controlled. s/p ORIF of bimalleolar ankle fracture with repair of subluxation/syndesmotic repair - Constitutional Vitals: Temp Pulse Resp BP Pulse Ox 97.9 F 71 22 145/75 97 07/10/16 16:05 07/10/16 16:05 07/10/16 16:05 07/10/16 16:05 07/10/16 16:05 General appearance: Present: A&O X 3, no acute distress (drowsy from the pain medications), answers questions appropriately - Head Head exam: Present: atraumatic, normocephalic - Eye Eye exam: Present: normal appearance, conjuntiva pink, sclera anicteric - Respiratory Respiratory exam: Present: CTAB. Absent: respiratory distress, wheezes - Cardiovascular Cardiovascular exam: Present: RRR, +S1 - GI/Abdominal GI/Abdominal exam: Present: normal bowel sounds, soft. Absent: distended, tenderness - Extremities Exam Extremities exam: Present: pedal edema, warm, radial pulses palpable and symetrical - Neurological Exam Neurological exam: Present: alert Internal Medicine: Result - Labs CBC & Chem 7: 07/10/16 05:44 07/10/16 05:44 Labs: Short CBC 07/10/16 Range/Units 05:44 WBC 6.2 (4.3-11.1) K/mcL Hgb 10.4 L (11.5-15.4) g/dL Hct 31.8 L (35.3-44.9) % Plt Count 156 (140-400) K/mcL Neutrophils # 4.9 (1.6-8.9) K/mcL BMP 07/10/16 05:44 Sodium 143 Potassium 3.3 L Chloride 105 Carbon Dioxide 26 BUN 11 Creatinine 0.82 Glucose 103 H Calcium 8.9 - ABG Interpretation ABG results: PT/INR, D-dimer PT 10.4 Seconds (9.4-12.1) 07/09/16 05:52 - Impressions Impressions Fluoroscopy 07/09/16 16:37 IMPRESSION: Intraprocedural fluoroscopic spot images as above. See separate procedure report for more information. D/ / Shaniqua Hawkins MD / Shaniqua Hawkins MD Interpreting Provider: Shaniqua Hawkins MD - VTE Documentation of Mechanical Device: Intermittent pneumatic compression device Consult Discharge Plan - Plan Referrals: Estrada Hooper DO [Primary Care Provider] - 10/14/16 1:00 pm
[2016-07-10] MEDS: traMADol 50 MG TABLET PO PRN (20:38)
[2016-07-11 05:02] LABS: Basophils % 0.3 %; Eosinophils # 0.1 K/mcL (0.0-0.6); Eosinophils % 1.4 %; Hematocrit 33.6 % (35.3-44.9); Hemoglobin 10.8 g/dL (11.5-15.4); Immature Granulocytes % 0.6 % (0-4); Lymphocytes # 0.8 K/mcL (0.6-4.6); Lymphocytes % 12.2 %; Mean Corpuscular HGB Conc 32.1 g/dL (31.6-35.5); Mean Corpuscular Volume 93.3 fL (83.0-100.0); Monocytes # 0.8 K/mcL (0.0-1.3); Monocytes % 11.8 %; Neutrophils # 4.8 K/mcL (1.6-8.9); Platelet Count 166 K/mcL (140-400); Red Cell Distribution Width 11.9 % (11.5-14.5); Segmented Neutrophils % 73.7 %
[2016-07-11 05:16] LABS: BUN/Creatinine Ratio 13 (6-26); Blood Urea Nitrogen 11 mg/dL (7-20); Calcium 9.2 mg/dL (8.6-10.8); Carbon Dioxide 30 mEq/L (19-29); Chloride 101 mEq/L (98-109); Glucose 104 mg/dL (70-99); Magnesium 1.7 mg/dL (1.6-2.6); Osmolality,Calculated 296 (280-300); Phosphorous 2.7 mg/dL (2.3-4.7); Potassium 3.3 mEq/L (3.5-4.5); Sodium 143 mEq/L (136-145); eGFR For African Americans > 60 (> 60); eGFR For Non-African Americans > 60 (> 60)
[2016-07-11] MEDS: carBAMazepine 200 MG TABLET PO SCH ×2 (06:31→18:34)
[2016-07-11] MEDS: *HR* Heparin 5,000 UNIT/ML VIAL SQ SCH ×2 (06:31→18:34)
[2016-07-11] MEDS: traMADol 50 MG TABLET PO PRN ×2 (06:35→22:35)
[2016-07-11] MEDS ORDERED: Potassium Chloride 40 MEQ, Lidocaine 1% 2 ML in D5% in Water 500 ML IVPB ONE (08:29)
[2016-07-11] MEDS: Furosemide 40 MG TABLET PO SCH (10:25)
[2016-07-11] MEDS: Famotidine 20 MG TABLET PO SCH (10:25)
[2016-07-11] MEDS: Lisinopril 20 MG TABLET PO SCH (10:26)
[2016-07-11] MEDS: amLODIPine 5 MG TABLET PO SCH (10:28)
--- NOTE | 2016-07-11 13:41 | Discharge Summary ---
Date of Encounter: 07/11/16 Time of Encounter: 09:30 - Discharge Diagnosis (1) Fracture dislocation of right ankle Priority: Primary Status: Acute (2) Fall Priority: Secondary Status: Acute Qualifiers: Encounter type: initial encounter Qualified Code(s): W19.XXXA - Unspecified fall, initial encounter (3) Hypertension Priority: Secondary Status: Chronic Qualifiers: Hypertension type: essential hypertension Qualified Code(s): I10 - Essential (primary) hypertension (4) Osteoporosis Priority: Secondary Status: Chronic (5) Trigeminal neuralgia Priority: Secondary Status: Chronic (6) Hypokalemia Priority: Secondary Status: Resolved (7) DVT prophylaxis Priority: Secondary Status: Acute (8) CHF (congestive heart failure) Priority: Secondary Status: Chronic Qualifiers: Congestive heart failure type: unspecified congestive heart failure type Congestive heart failure chronicity: chronic Qualified Code(s): I50.9 - Heart failure, unspecified - Discharge Medications Prescriptions: OxyCODONE/APAP 5/325 [Percocet 5/325 MG] 1 each PO Q4HR PRN #30 tablet PRN Reason: Severe Pain Sennosides/Docusate Sodium [Senna Plus] 2 each PO BID PRN #30 tablet PRN Reason: Constipation Sulfamethoxazole/Trimeth DS [Bactrim DS] 1 each PO BID #20 tablet Home Medications: Furosemide [Lasix] 20 mg PO QPM 07/07/15 [History] Lisinopril [Zestril] 40 mg PO DAILY 07/07/15 [History] Potassium Chloride [Klor-Con Sprinkle] 10 meq PO DAILY 07/07/15 [History] Amlodipine [Norvasc] 7.5 mg PO DAILY 06/16/16 [History] CarBAMazepine [Carbamazepine ER] 400 mg PO Q12H 07/08/16 [History] Furosemide [Lasix] 40 mg PO QAM 07/08/16 [History] Tramadol HCl [Ultram] 50 mg PO TID PRN 07/08/16 [History] Metoprolol [Lopressor] 25 mg PO BID tablet 07/11/16 [Rx] OxyCODONE/APAP 5/325 [Percocet 5/325 MG] 1 each PO Q4HR PRN #30 tablet 07/11/16 [Rx] Sennosides/Docusate Sodium [Senna Plus] 2 each PO BID PRN #30 tablet 07/11/16 [ Rx] Sulfamethoxazole/Trimeth DS [Bactrim DS] 1 each PO BID #20 tablet 07/11/16 [Rx] Allergies/Adverse Reactions: Allergies baclofen Allergy (Verified 07/08/16 15:14) Hives clindamycin Allergy (Verified 07/08/16 15:14) Hives clonidine Allergy (Verified 07/08/16 15:14) Hives codeine Allergy (Verified 07/08/16 15:14) Hives hydrocodone [From Vicodin] Allergy (Verified 07/08/16 15:14) Hives lovastatin Allergy (Verified 07/08/16 15:14) Hives gabapentin Adverse Reaction (Verified 06/16/16 00:22) Shakiness Date of admission: 07/08/16 16:19 Primary care physician: Estrada Hooper DO Consults: 07/08/16 18:58 Consult to Podiatry [CONS] Routine Consulting Provider: Podiatry [facility] Reason for Consult: fracture/dislocation right ankle. Call Completed: No 07/10/16 10:03 Consult to Occupational Therapy [CONS] Stat Comment: Evaluate, develop and implement POC Consult to Physical Therapy [CONS] Stat Comment: Evaluate, develop and implement POC Consult to [employer] [CONS] Stat Reason for SW Consult: discharge planning Discharging clinician: Pearl Ramos Anticipated date of discharge: 07/11/16 - Patient Status Disposition: Transfer SNF Condition: Fair Functional capacity at discharge: uses cane/walker Overall status at discharge: patient is progressing back to baseline - Discharge Instructions Follow Up With: Estrada Hooper DO [Primary Care Provider] - 10/14/16 1:00 pm Additional Instructions: Please follow up with podiatry within 1 week after discharge. leave Dressing intact until your follow-up with podiatry. Please take Bactrim twice a day for total of 10 days as recommended by podiatry. follow up with her primary care physician within one week after discharge from the hospital. Please continue all usual medications as prescribed by her primary care physician. - Diet and Activity Activity: as per physical therapy Diet: advance to your usual diet, low salt diet Hospital course: Ms. Macedo is a 86 year old female with past medical history of CHF, hypertension, trigeminal neuralgia, anemia who was transferred from [facility] for evaluation of pain status post fall. On further evaluation patient was noted to have right ankle fracture for which podiatry was consulted. Patient underwent ORIF of bimalleolar ankle fracture with repair of subluxation/ syndesmotic repair by podiatry. She tolerated the procedure well without any postop complications. As per podiatry evaluation, patient was noted to have blisters on her feet and will benefit from oral antibiotic therapy for 10 days after discharge. Patient was seen by physical therapy, and a rehabilitation placement was recommended. At this time patient is medically stable and will be discharged to SNF with follow-up with PCP in podiatry. Patient is to continue on oral antibiotics, pain control, and dressing is to remain intact until her follow-up with podiatry. Patient and family agree with patient's diagnoses, discharge care and plan. - Time Spent with Patient Total time spent providing and/or coordinating discharge services: - Constitutional Vitals: Temp Pulse Resp BP Pulse Ox 97.0 F L 73 16 126/83 98 07/11/16 10:48 07/11/16 10:48 07/11/16 10:48 07/11/16 10:48 07/11/16 10:55 General appearance: Present: A&O X 3, no acute distress, answers questions appropriately - Head Head exam: Present: atraumatic, normocephalic - Eye Eye exam: Present: normal appearance, conjuntiva pink, sclera anicteric - Respiratory Respiratory exam: Present: CTAB. Absent: respiratory distress, wheezes - Cardiovascular Cardiovascular exam: Present: RRR, +S1, +S2 - GI/Abdominal GI/Abdominal exam: Present: normal bowel sounds, soft. Absent: tenderness - Extremities Exam Extremities exam: Present: warm, radial pulses palpable and symetrical. Absent : tenderness - Neurological Exam Neurological exam: Present: alert - VTE Documentation of Mechanical Device: Intermittent pneumatic compression device
--- NOTE | 2016-07-11 13:46 | Physician Discharge Referral ---
ExtendedCare Referral Info Transfer To: [facility] Provider in Charge after Transfer: PCP - Diagnosis (1) Fracture dislocation of right ankle Priority: Primary Status: Acute (2) Fall Priority: Secondary Status: Acute (3) Hypertension Priority: Secondary Status: Chronic (4) Osteoporosis Priority: Secondary Status: Chronic (5) Trigeminal neuralgia Priority: Secondary Status: Chronic (6) Hypokalemia Priority: Secondary Status: Resolved (7) DVT prophylaxis Priority: Secondary Status: Acute (8) CHF (congestive heart failure) Priority: Secondary Status: Chronic - Transfer Medications Prescriptions: OxyCODONE/APAP 5/325 [Percocet 5/325 MG] 1 each PO Q4HR PRN #30 tablet PRN Reason: Severe Pain Sennosides/Docusate Sodium [Senna Plus] 2 each PO BID PRN #30 tablet PRN Reason: Constipation Sulfamethoxazole/Trimeth DS [Bactrim DS] 1 each PO BID #20 tablet Home Medications: Furosemide [Lasix] 20 mg PO QPM 07/07/15 [History] Lisinopril [Zestril] 40 mg PO DAILY 07/07/15 [History] Potassium Chloride [Klor-Con Sprinkle] 10 meq PO DAILY 07/07/15 [History] Amlodipine [Norvasc] 7.5 mg PO DAILY 06/16/16 [History] CarBAMazepine [Carbamazepine ER] 400 mg PO Q12H 07/08/16 [History] Furosemide [Lasix] 40 mg PO QAM 07/08/16 [History] Tramadol HCl [Ultram] 50 mg PO TID PRN 07/08/16 [History] Metoprolol [Lopressor] 25 mg PO BID tablet 07/11/16 [Rx] OxyCODONE/APAP 5/325 [Percocet 5/325 MG] 1 each PO Q4HR PRN #30 tablet 07/11/16 [Rx] Sennosides/Docusate Sodium [Senna Plus] 2 each PO BID PRN #30 tablet 07/11/16 [ Rx] Sulfamethoxazole/Trimeth DS [Bactrim DS] 1 each PO BID #20 tablet 07/11/16 [Rx] Allergies/Adverse Reactions: Allergies baclofen Allergy (Verified 07/08/16 15:14) Hives clindamycin Allergy (Verified 07/08/16 15:14) Hives clonidine Allergy (Verified 07/08/16 15:14) Hives codeine Allergy (Verified 07/08/16 15:14) Hives hydrocodone [From Vicodin] Allergy (Verified 07/08/16 15:14) Hives lovastatin Allergy (Verified 07/08/16 15:14) Hives gabapentin Adverse Reaction (Verified 06/16/16 00:22) Shakiness - Respiratory Orders Smoking Cessation: Smoking cessation has been advised. For more information, call the [place] Tobacco Quit Line at 6-484-CHFM-NOW. - Treatments List/Other: Please follow up with podiatry within 1 week after discharge. leave Dressing intact until your follow-up with podiatry. Please take Bactrim twice a day for total of 10 days as recommended by podiatry. follow up with her primary care physician within one week after discharge from the hospital. Please continue all usual medications as prescribed by her primary care physician. CERTIFICATION: I certify that the transfer of the above named patient to an Extended Care Facility is necessary for the continuing treatment of the diagnosis listed. The above information is true and accurate reflection of patient's current condition. Confidential - Redisclosure prohibited without a patient's written consent.
[2016-07-11] MEDS: Furosemide 20 MG TABLET PO SCH (18:34)
[2016-07-11] MEDS: *HR* HYDROmorphone (PF) 1 MG/ML SYRINGE IVP PRN (22:28)
[2016-07-12] MEDS: traMADol 50 MG TABLET PO PRN ×2 (04:59→11:09)
[2016-07-12] MEDS: carBAMazepine 200 MG TABLET PO SCH ×2 (06:05→18:02)
[2016-07-12] MEDS: *HR* Heparin 5,000 UNIT/ML VIAL SQ SCH ×2 (06:06→18:03)
[2016-07-12] MEDS: Lisinopril 20 MG TABLET PO SCH (09:21)
[2016-07-12] MEDS: Furosemide 40 MG TABLET PO SCH (09:21)
[2016-07-12] MEDS: Famotidine 20 MG TABLET PO SCH (09:21)
[2016-07-12] MEDS: amLODIPine 5 MG TABLET PO SCH (09:21)
--- NOTE | 2016-07-12 10:04 | Internal Med Progress Note ---
Date of Encounter: 07/12/16 Time of Encounter: 09:59 - Assessment and plan (1) Fracture dislocation of right ankle Current Visit: No Status: Acute Assessment and plan: Continue pain control S/P ORIF of bimalleolar ankle fracture with repair of subluxation/syndesmotic repair by podiatry. POD 2 patient tolerated the procedure well Podiatry consultation appreciated. PT/OT: SNF placement Social work consulted for rehab placement supportive care d/c pending rehab placement (2) Fall Current Visit: Yes Status: Acute Assessment and plan: maintain fall precautions PT/OT eval: SNF placement Qualifiers: Encounter type: initial encounter Qualified Code(s): W19.XXXA - Unspecified fall, initial encounter (3) Hypertension Current Visit: Yes Status: Chronic Assessment and plan: BP within acceptable range continue home medications Qualifiers: Hypertension type: essential hypertension Qualified Code(s): I10 - Essential (primary) hypertension (4) Osteoporosis Current Visit: Yes Status: Chronic (5) Trigeminal neuralgia Current Visit: Yes Status: Chronic Assessment and plan: continue home medications (6) Hypokalemia Current Visit: Yes Status: Resolved (7) DVT prophylaxis Current Visit: Yes Status: Acute Assessment and plan: Heparin SQ (8) CHF (congestive heart failure) Current Visit: Yes Status: Chronic Assessment and plan: Not in acute exacerbation continue home medications Qualifiers: Congestive heart failure type: unspecified congestive heart failure type Congestive heart failure chronicity: chronic Qualified Code(s): I50.9 - Heart failure, unspecified - Subjective Interval history: Patient seen and examined at bedside. Resting in bed, states the pain is currently well controlled. s/p ORIF of bimalleolar ankle fracture with repair of subluxation/syndesmotic repair No overnight issues reported. Discharge pending placement - Constitutional Vitals: Temp Pulse Resp BP Pulse Ox 98.0 F 75 17 152/89 100 07/12/16 06:32 07/12/16 06:32 07/12/16 06:32 07/12/16 06:32 07/12/16 06:32 General appearance: Present: A&O X 3, no acute distress, obese, answers questions appropriately - Head Head exam: Present: atraumatic, normocephalic - Eye Eye exam: Present: normal appearance, conjuntiva pink, sclera anicteric - Respiratory Respiratory exam: Present: CTAB. Absent: respiratory distress, wheezes - Cardiovascular Cardiovascular exam: Present: RRR, +S1, +S2 - GI/Abdominal GI/Abdominal exam: Present: normal bowel sounds, soft. Absent: tenderness - Extremities Exam Extremities exam: Present: warm, radial pulses palpable and symetrical (LLE wrapped in dressing). Absent: pedal edema - Neurological Exam Neurological exam: Present: alert, oriented X3 - Psychiatric Psychiatric exam: Present: normal affect, normal mood Internal Medicine: Result - Labs CBC & Chem 7: 07/11/16 04:41 07/11/16 04:41 - ABG Interpretation ABG results: PT/INR, D-dimer PT 10.4 Seconds (9.4-12.1) 07/09/16 05:52 - VTE Documentation of Mechanical Device: Intermittent pneumatic compression device Consult Discharge Plan - Plan Additional Instructions: Please follow up with podiatry within 1 week after discharge. leave Dressing intact until your follow-up with podiatry. Please take Bactrim twice a day for total of 10 days as recommended by podiatry. follow up with her primary care physician within one week after discharge from the hospital. Please continue all usual medications as prescribed by her primary care physician. Referrals: Estrada Hooper DO [Primary Care Provider] - 10/14/16 1:00 pm Prescriptions: OxyCODONE/APAP 5/325 [Percocet 5/325 MG] 1 each PO Q4HR PRN #30 tablet PRN Reason: Severe Pain Sennosides/Docusate Sodium [Senna Plus] 2 each PO BID PRN #30 tablet PRN Reason: Constipation Sulfamethoxazole/Trimeth DS [Bactrim DS] 1 each PO BID #20 tablet
[2016-07-12 15:11] LABS: Bilirubin,Urine Negative (Negative); Blood,Urine Negative (Negative); Clarity,Urine Cloudy (Clear); Color,Urine Yellow (Yellow); Glucose,Urine (UA) 100 mg/dL (Normal); Ketones,Urine Trace mg/dL (Negative); Leukocyte Esterase,Urine Trace (Negative); Nitrite,Urine Negative (Negative); Protein,Urine 30 mg/dL (Neg-Trace); Specific Gravity,Urine 1.016 (1.010-1.025); Urobilinogen,Urine Normal (Normal)
[2016-07-12 15:14] LABS: Squamous Epithelial Cell,Urine Many per lpf (None-Few); WBC,Urine 0-3 per hpf (0-3)
[2016-07-12 15:28] LABS: RBC,Urine 0-3 per hpf (0-3)
[2016-07-12 15:29] LABS: Bacteria,Urine Few per hpf (None-Few); Hyaline Casts,Urine Few per lpf (None-Few)
[2016-07-12] MEDS: *HR* HYDROmorphone (PF) 1 MG/ML SYRINGE IVP PRN (15:34)
[2016-07-12] MEDS: Furosemide 20 MG TABLET PO SCH (18:02)
[2016-07-13] MEDS: *HR* HYDROmorphone (PF) 1 MG/ML SYRINGE IVP PRN ×2 (04:27→20:02)
[2016-07-13] MEDS: *HR* Heparin 5,000 UNIT/ML VIAL SQ SCH ×2 (06:52→17:59)
[2016-07-13] MEDS: carBAMazepine 200 MG TABLET PO SCH ×2 (06:52→17:59)
[2016-07-13 08:51] LABS: Basophils % 0.4 %; Eosinophils # 0.2 K/mcL (0.0-0.6); Eosinophils % 3.8 %; Hematocrit 36.1 % (35.3-44.9); Hemoglobin 11.3 g/dL (11.5-15.4); Immature Granulocytes % 0.4 % (0-4); Lymphocytes % 18.2 %; Mean Corpuscular HGB Conc 31.3 g/dL (31.6-35.5); Mean Corpuscular Hemoglobin 30.5 pg (28.0-33.3); Mean Corpuscular Volume 97.6 fL (83.0-100.0); Mean Platelet Volume 9.9 fL (9.4-12.4); Monocytes # 0.5 K/mcL (0.0-1.3); Neutrophils # 3.6 K/mcL (1.6-8.9); Platelet Count 222 K/mcL (140-400); Red Cell Distribution Width 12.1 % (11.5-14.5); Segmented Neutrophils % 68.2 %
[2016-07-13 09:04] LABS: BUN/Creatinine Ratio 18 (6-26); Blood Urea Nitrogen 14 mg/dL (7-20); Calcium 9.6 mg/dL (8.6-10.8); Carbon Dioxide 28 mEq/L (19-29); Chloride 102 mEq/L (98-109); Glucose 110 mg/dL (70-99); Osmolality,Calculated 295 (280-300); Phosphorous 3.1 mg/dL (2.3-4.7); Potassium 3.8 mEq/L (3.5-4.5); Sodium 142 mEq/L (136-145); eGFR For African Americans > 60 (> 60); eGFR For Non-African Americans > 60 (> 60)
[2016-07-13] MEDS: Famotidine 20 MG TABLET PO SCH (10:11)
[2016-07-13] MEDS: Lisinopril 20 MG TABLET PO SCH (10:11)
[2016-07-13] MEDS: Furosemide 40 MG TABLET PO SCH (10:12)
[2016-07-13] MEDS: traMADol 50 MG TABLET PO PRN ×2 (10:12→17:59)
[2016-07-13] MEDS: amLODIPine 5 MG TABLET PO SCH (10:12)
--- NOTE | 2016-07-13 14:02 | Podiatry Progress Note ---
Date of Encounter: 07/12/16 Time of Encounter: 17:00 - Assessment and Plan (1) Fracture dislocation of right ankle Current Visit: No Status: Acute Examined at bedside Dressing and splint intact Leave dressing intact at this time Patient ok to discharge per podiatry Please send with Bactrim DS BID x10 days PO- fracture blisters present- taken care of per internal medicine- thanks Follow up in clinic in 1 week Patient going to [facility] friday Non weight bearing to RLE While in bed elevate RLE above level of heart Monitor for pressure to heel Call with any fevers, chills or flu like symptoms Call with any operative site complications Subjective Interval history: Day #3 post op Open reduction, internal fixation of bimalleolar ankle fracture with repair of subluxation/syndesmotic repair with Dr. Byrd. Patient sleeping on arrival. Nurse states she was having severe pain to her neck and back and she just administered dilaudid as ordered. Nurse states there has been no issues. states she is going to [facility] on Friday. Dressing intact to surgical site, posterior splint intact. Nurse denies any fevers, chills, flu like symptoms or calf pain. Objective - Vital Signs Vital Signs: Vital Signs Temp Pulse Resp BP Pulse Ox 07/13/16 11:10 98.7 F 82 16 110/70 94 L 07/13/16 06:49 98.5 F 60 18 146/80 98 07/12/16 23:23 98.4 F 68 14 163/92 96 07/12/16 19:57 97.6 F 82 18 142/84 98 07/12/16 15:16 97.4 F L 74 18 148/70 93 L Intake and Output 07/12/16 07/13/16 07/13/16 23:59 07:59 15:59 Other: # Voids 1 - Exam Exam: Surgical dressing and posterior splint intact. All toes warm. Cap refill time < 3 seconds. No drainage noted to surgical dressing. No calf warmth or swelling noted with palpation - Lab Result Diagrams: 07/13/16 08:39 07/13/16 08:39 Labs: Abnormal lab results RBC 3.70 M/mcL (3.82-4.97) L 07/13/16 08:39 Hgb 11.3 g/dL (11.5-15.4) L 07/13/16 08:39 MCHC 31.3 g/dL (31.6-35.5) L 07/13/16 08:39 Glucose 110 mg/dL (70-99) H 07/13/16 08:39 Urine Clarity Cloudy (Clear) A 07/12/16 14:30 Urine Protein 30 mg/dL (Neg-Trace) H 07/12/16 14:30 Urine Glucose (UA) 100 mg/dL (Normal) H 07/12/16 14:30 Urine Ketones Trace mg/dL (Negative) H 07/12/16 14:30 Ur Leukocyte Esterase Trace (Negative) H 07/12/16 14:30 Ur Squamous Epith Cells Many per lpf (None-Few) H 07/12/16 14:30 Ur Culture Indicated? YES (NO) A 07/12/16 14:30 Microbiology, Last 48 Hours 07/12/16 14:30 Urine Culture - Final Urine,Clean Catch No pathogens isolated. - VTE Documentation of Mechanical Device: Intermittent pneumatic compression device Consult Discharge Plan - Plan Additional Instructions: Please follow up with podiatry within 1 week after discharge. leave Dressing intact until your follow-up with podiatry. Please take Bactrim twice a day for total of 10 days as recommended by podiatry. follow up with her primary care physician within one week after discharge from the hospital. Please continue all usual medications as prescribed by her primary care physician. Referrals: Estrada Hooper DO [Primary Care Provider] - 10/14/16 1:00 pm Prescriptions: OxyCODONE/APAP 5/325 [Percocet 5/325 MG] 1 each PO Q4HR PRN #30 tablet PRN Reason: Severe Pain Sennosides/Docusate Sodium [Senna Plus] 2 each PO BID PRN #30 tablet PRN Reason: Constipation Sulfamethoxazole/Trimeth DS [Bactrim DS] 1 each PO BID #20 tablet
--- NOTE | 2016-07-13 17:11 | Internal Med Progress Note ---
Date of Encounter: 07/13/16 Time of Encounter: 14:15 - Assessment and plan (1) Fracture dislocation of right ankle Current Visit: No Status: Acute Assessment and plan: Continue pain control S/P ORIF of bimalleolar ankle fracture with repair of subluxation/syndesmotic repair by podiatry. POD 3 patient tolerated the procedure well Podiatry consultation appreciated. PT/OT: SNF placement Social work consulted for rehab placement supportive care d/c pending rehab placement (2) Fall Current Visit: Yes Status: Acute Assessment and plan: maintain fall precautions PT/OT eval: SNF placement Qualifiers: Encounter type: initial encounter Qualified Code(s): W19.XXXA - Unspecified fall, initial encounter (3) Hypertension Current Visit: Yes Status: Chronic Assessment and plan: BP within acceptable range continue home medications Qualifiers: Hypertension type: essential hypertension Qualified Code(s): I10 - Essential (primary) hypertension (4) Osteoporosis Current Visit: Yes Status: Chronic (5) Trigeminal neuralgia Current Visit: Yes Status: Chronic (6) Hypokalemia Current Visit: Yes Status: Resolved (7) DVT prophylaxis Current Visit: Yes Status: Acute Assessment and plan: Heparin SQ (8) CHF (congestive heart failure) Current Visit: Yes Status: Chronic Assessment and plan: Not in acute exacerbation continue home medications Qualifiers: Congestive heart failure type: unspecified congestive heart failure type Congestive heart failure chronicity: chronic Qualified Code(s): I50.9 - Heart failure, unspecified - Subjective Interval history: Patient seen and examined with family present at bedside. Reports of feeling better today. s/p ORIF of bimalleolar ankle fracture with repair of subluxation/syndesmotic repair No overnight issues reported. Discharge pending placement - Constitutional Vitals: Temp Pulse Resp BP Pulse Ox 98.5 F 87 16 114/68 95 07/13/16 15:01 07/13/16 15:01 07/13/16 15:01 07/13/16 15:01 07/13/16 15:01 General appearance: Present: A&O X 3, no acute distress, obese, answers questions appropriately - Head Head exam: Present: atraumatic, normocephalic - Eye Eye exam: Present: PERRL, conjuntiva pink, sclera anicteric - Respiratory Respiratory exam: Present: CTAB. Absent: accessory muscle use, rales, rhonchi, wheezes - Cardiovascular Cardiovascular exam: Present: RRR, +S1, +S2 - GI/Abdominal GI/Abdominal exam: Present: normal bowel sounds, soft. Absent: tenderness - Extremities Exam Extremities exam: Present: pedal edema, warm, radial pulses palpable and symetrical - Neurological Exam Neurological exam: Present: alert - Psychiatric Psychiatric exam: Present: normal affect, normal mood Internal Medicine: Result - Labs CBC & Chem 7: 07/13/16 08:39 07/13/16 08:39 Labs: Short CBC 07/13/16 Range/Units 08:39 WBC 5.2 (4.3-11.1) K/mcL Hgb 11.3 L (11.5-15.4) g/dL Hct 36.1 (35.3-44.9) % Plt Count 222 (140-400) K/mcL Neutrophils # 3.6 (1.6-8.9) K/mcL BMP 07/13/16 08:39 Sodium 142 Potassium 3.8 Chloride 102 Carbon Dioxide 28 BUN 14 Creatinine 0.80 Glucose 110 H Calcium 9.6 - ABG Interpretation ABG results: PT/INR, D-dimer PT 10.4 Seconds (9.4-12.1) 07/09/16 05:52 - VTE Documentation of Mechanical Device: Intermittent pneumatic compression device Consult Discharge Plan - Plan Additional Instructions: Please follow up with podiatry within 1 week after discharge. leave Dressing intact until your follow-up with podiatry. Please take Bactrim twice a day for total of 10 days as recommended by podiatry. follow up with her primary care physician within one week after discharge from the hospital. Please continue all usual medications as prescribed by her primary care physician. Referrals: Estrada Hooper DO [Primary Care Provider] - 10/14/16 1:00 pm Prescriptions: OxyCODONE/APAP 5/325 [Percocet 5/325 MG] 1 each PO Q4HR PRN #30 tablet PRN Reason: Severe Pain Sennosides/Docusate Sodium [Senna Plus] 2 each PO BID PRN #30 tablet PRN Reason: Constipation Sulfamethoxazole/Trimeth DS [Bactrim DS] 1 each PO BID #20 tablet
[2016-07-13] MEDS: Furosemide 20 MG TABLET PO SCH (17:59)
[2016-07-14] MEDS: carBAMazepine 200 MG TABLET PO SCH (06:35)
[2016-07-14] MEDS: *HR* Heparin 5,000 UNIT/ML VIAL SQ SCH (06:35)
[2016-07-14] MEDS: traMADol 50 MG TABLET PO PRN ×2 (07:16→13:06)
[2016-07-14] MEDS: amLODIPine 5 MG TABLET PO SCH (08:46)
[2016-07-14] MEDS: Furosemide 40 MG TABLET PO SCH (08:46)
[2016-07-14] MEDS: Lisinopril 20 MG TABLET PO SCH (08:46)
[2016-07-14] MEDS: Famotidine 20 MG TABLET PO SCH (08:46)
--- NOTE | 2016-07-14 09:58 | Internal Med Progress Note ---
Date of Encounter: 07/14/16 Time of Encounter: 09:56 - Assessment and plan (1) Fracture dislocation of right ankle Current Visit: No Status: Acute (2) Fall Current Visit: Yes Status: Acute Qualifiers: Encounter type: initial encounter Qualified Code(s): W19.XXXA - Unspecified fall, initial encounter (3) Hypertension Current Visit: Yes Status: Chronic Qualifiers: Hypertension type: essential hypertension Qualified Code(s): I10 - Essential (primary) hypertension (4) Osteoporosis Current Visit: Yes Status: Chronic (5) Trigeminal neuralgia Current Visit: Yes Status: Chronic (6) Hypokalemia Current Visit: Yes Status: Resolved (7) DVT prophylaxis Current Visit: Yes Status: Acute (8) CHF (congestive heart failure) Current Visit: Yes Status: Chronic Qualifiers: Congestive heart failure type: unspecified congestive heart failure type Congestive heart failure chronicity: chronic Qualified Code(s): I50.9 - Heart failure, unspecified - Subjective Interval history: Patient seen and examined at bedside. Resting comfortably in chair. Denies any pain or discomfort at this time. No overnight issues were reported. Patient is status post ORIF of bimalleolar ankle fracture with repair of subluxation/syndesmotic repair She has been [facility] at [facility] Patient will be discharged to rehabilitation today with follow-up with podiatry and primary care physician Patient and family agrees with discharge care and plan. - Constitutional Vitals: Temp Pulse Resp BP Pulse Ox 98.4 F 78 16 146/82 98 07/14/16 06:36 07/14/16 06:36 07/14/16 06:36 07/14/16 06:36 07/14/16 08:56 General appearance: Present: A&O X 3, no acute distress, obese, answers questions appropriately - Head Head exam: Present: atraumatic, normocephalic - Eye Eye exam: Present: normal appearance, conjuntiva pink, sclera anicteric - Respiratory Respiratory exam: Present: CTAB. Absent: respiratory distress, wheezes - Cardiovascular Cardiovascular exam: Present: RRR, +S1, +S2. Absent: diastolic murmur, gallop, rubs, systolic murmur - GI/Abdominal GI/Abdominal exam: Present: normal bowel sounds, soft, no peritoneal signs. Absent: distended, tenderness - Extremities Exam Extremities exam: Present: pedal edema, warm, radial pulses palpable and symetrical - Neurological Exam Neurological exam: Present: alert, oriented X3 - Psychiatric Psychiatric exam: Present: normal affect, normal mood Internal Medicine: Result - Labs CBC & Chem 7: 07/13/16 08:39 07/13/16 08:39 - ABG Interpretation ABG results: PT/INR, D-dimer PT 10.4 Seconds (9.4-12.1) 07/09/16 05:52 - VTE Documentation of Mechanical Device: Intermittent pneumatic compression device Consult Discharge Plan - Plan Additional Instructions: Please follow up with podiatry within 1 week after discharge. leave Dressing intact until your follow-up with podiatry. Please take Bactrim twice a day for total of 10 days as recommended by podiatry. follow up with her primary care physician within one week after discharge from the hospital. Please continue all usual medications as prescribed by her primary care physician. Referrals: Estrada Hooper DO [Primary Care Provider] - 10/14/16 1:00 pm Prescriptions: OxyCODONE/APAP 5/325 [Percocet 5/325 MG] 1 each PO Q4HR PRN #30 tablet PRN Reason: Severe Pain Sennosides/Docusate Sodium [Senna Plus] 2 each PO BID PRN #30 tablet PRN Reason: Constipation Sulfamethoxazole/Trimeth DS [Bactrim DS] 1 each PO BID #20 tablet
[2016-07-14 11:24] VITALS: BP 130/73
== END 2016-07-14 13:30 ==
LOC: 3NENU → SUATTDRO 16:19
PROVIDERS: ADMIT Internal Medicine; ATTEND Internal Medicine

== ENCOUNTER 2018-04-13 13:37 | Inpatient (IN) ==
[2018-04-13 14:22] LABS: Basophils % 0.3 %; Eosinophils # 0.1 K/mcL (0.0-0.6); Eosinophils % 1.6 %; Hematocrit 33.4 % (35.3-44.9); Hemoglobin 9.9 g/dL (11.5-15.4); Immature Granulocytes % 0.6 % (0-4); Lymphocytes # 0.4 K/mcL (0.6-4.6); Mean Corpuscular HGB Conc 29.6 g/dL (31.6-35.5); Mean Corpuscular Hemoglobin 27.1 pg (28.0-33.3); Mean Corpuscular Volume 91.5 fL (83.0-100.0); Mean Platelet Volume 9.8 fL (9.4-12.4); Monocytes # 0.4 K/mcL (0.0-1.3); Monocytes % 6.2 %; Neutrophils # 5.8 K/mcL (1.6-8.9); Platelet Count 219 K/mcL (140-400); Red Blood Count 3.65 M/mcL (3.82-4.97); Red Cell Distribution Width 13.4 % (11.5-14.5); Segmented Neutrophils % 85.3 %
[2018-04-13 14:30] LABS: Prothrombin Time 11.8 Seconds (9.4-12.1)
[2018-04-13 14:33] LABS: Activated Partial Thrombo Time 30.5 Seconds (26.0-36.0)
[2018-04-13 14:34] LABS: Troponin I < 0.03 ng/mL (< 0.04)
[2018-04-13 14:35] LABS: BUN/Creatinine Ratio 17 (6-26); Blood Urea Nitrogen 14 mg/dL (8-23); Calcium 8.8 mg/dL (8.6-10.3); Carbon Dioxide 30 mEq/L (23-29); Chloride 102 mEq/L (98-107); Creatine Kinase 30 Units/L (30-223); Glucose 150 mg/dL (70-105); Osmolality,Calculated 293 (280-300); Potassium 3.3 mEq/L (3.5-5.1); Sodium 140 mEq/L (136-145); eGFR For Non-African Americans > 60 (> 60)
--- NOTE | 2018-04-13 14:55 | Emergency Department Note ---
Addendum entered and electronically signed by Renny Kapoor DO 04/13/18 16:07: EKG shows normal sinus rhythm, rate 69, indeterminate axis, no acute ischemic changes, slightly prolonged QTC of 491 Original Note: Disposition Clinical Impression: Left displaced femoral neck fracture Fall Qualifiers: Encounter type: initial encounter Qualified Code(s): W19.XXXA - Unspecified fall, initial encounter Disposition: Admitted As Inpatient Condition: Fair Time of Disposition: 15:20 Fall HPI - General Chief Complaint: ED Fall Stated Complaint: fall Time Seen by Provider: 04/13/18 13:45 Source: patient, EMS Mode of arrival: EMS Limitations: no limitations Nursing Notes Reviewed: Yes Vital Signs Reviewed: Yes - History of Present Illness HPI Narrative: Patient presents to the ED after a fall this morning. Patient reports that she was bending over to put some icing and the trashcan and thinks that she lost her balance. She got dizzy and lightheaded and started stumbling backwards. She fell to the ground on the left side. He is unsure if she hit her head. Denies any loss of consciousness. States that she was on the ground for "some time" before her family came back to find her. States it was potentially an hour or 2. She denies any headache or neck pain currently. No fever or chills. Denies any chest pain or shortness of breath prior to or after the fall. Denying any abdominal pain, nausea, vomiting, loss of bowel or bladder function. She has no numbness in her extremities. She does complain of left-sided hip pain. Denies any anticoagulants. Is unsure if she is on any antiplatelet medications - Related Data Home Medications Medication Instructions Recorded Confirmed RX: Lisinopril [Zestril] 40 mg PO DAILY 07/07/15 04/13/18 RX: Potassium Chloride [Klor-Con 10 meq PO DAILY 07/07/15 04/13/18 Sprinkle] RX: amLODIPine [Norvasc] 7.5 mg PO DAILY 06/16/16 04/13/18 RX: CarBAMazepine [Carbamazepine 400 mg PO Q12H 07/08/16 11/01/17 ER] RX: Furosemide [Lasix] 40 mg PO QAM 07/08/16 04/13/18 Aspirin [Adult Aspirin Regimen] 81 mg PO DAILY 11/01/17 04/13/18 RX: Folic Acid 1 mg PO DAILY 11/01/17 04/13/18 RX: Metoprolol Tartrate [Lopressor] 25 mg PO BID 04/14/18 04/14/18 Allergies Allergy/AdvReac Type Severity Reaction Status Date / Time baclofen Allergy Hives Verified 07/08/16 15:14 clindamycin Allergy Hives Verified 07/08/16 15:14 clonidine Allergy Hives Verified 07/08/16 15:14 codeine Allergy Hives Verified 07/08/16 15:14 hydrocodone [From Vicodin] Allergy Hives Verified 07/08/16 15:14 lovastatin Allergy Hives Verified 07/08/16 15:14 gabapentin AdvReac Shakiness Verified 06/16/16 00:22 Review of Systems: As reviewed in the HPI. All other systems reviewed are negative or normal. Fall PMH - Past Medical History Medical history: Reports: arthritis, CHF, hypertension, other Surgical history: Reports: appendectomy, cholecystectomy, hysterectomy Psychiatric history: Reports: anxiety - Social History Smoking Status: Never smoker Alcohol use: Reports: none Drug use: Reports: none Physical Exam CONSTITUTIONAL: [well appearing, alert and in no acute distress] EYES: [EOMI, clear conjunctiva, PERRLA] HENT: [Normocephalic, atraumatic, moist mucus membranes, normal oropharynx] NECK: [normal inspection, full ROM, trachea midline, no obvious swelling] PULMONARY: [normal lung sounds bilaterally, normal chest rise and fall, no respiratory distress or stridor, no wheezes, no rales, no rhonchi CARDIOVASCULAR: [regular rate, regular rhythm, normal heart sounds, no murmurs, distal extremities are warm and well perfused] GASTROINSTESTINAL: [soft, non-tender, non-rigid, non-distended, no guarding, no rebound, normal bowel sounds] GENITOURINARY/RECTAL: [deferred] NEUROLOGIC: [Alert, oriented x3, normal speech, moves all extremities] EXTREMITIES: [The left hip is shortened and externally rotated with tenderness over the so as and mildly over the greater trochanter, suspecting femoral neck fracture, neurovascularly intact distally. Otherwise, normal inspection, full ROM, no tenderness, no pedal edema, normal capillary refill] MUSCULOSKELETAL: [Other than her suspected left femoral neck fracture. There is no other acute injuries] SKIN: [No cyanosis, no diaphoresis, normal color, warm, no rash] PSYCHIATRIC: [normal mood and affect] - General Limitations: no limitations General appearance: alert, in no apparent distress Course Course Narrative: Patient presenting after a fall. She is not really sure if this was purely mechanical or or if she passed out. We will get a cardiac workup. She likely has a left femoral neck fracture based on her physical exam. We will get a chest x-ray, head CT and pelvis/left hip x-ray. Patient will likely need to be admitted. - Reevaluation(s) Reevaluation #1: X-ray shows a mildly displaced left femoral neck fracture. Spoke with or mo and Dr. Goldsmith. Agreeable with admission. The hospitalist service, and surgical consult. Vital Signs Temperature 98.0 F 04/13/18 13:46 Pulse Rate 66 04/13/18 13:46 Respiratory Rate 18 04/13/18 13:46 Blood Pressure 156/122 04/13/18 13:46 O2 Sat by Pulse Oximetry 97 04/13/18 13:46 Temperature 98.0 F 04/13/18 13:46 Pulse Rate 66 04/13/18 13:46 Respiratory Rate 18 04/13/18 13:46 Blood Pressure 156/122 04/13/18 13:46 O2 Sat by Pulse Oximetry 97 04/13/18 13:46 Oxygen Delivery Oxygen Delivery Room Air Fall - Lab Data Result diagrams: 04/14/18 04:54 04/14/18 04:54 Lab Results 04/13/18 04/13/18 Range/Units 14:03 14:03 WBC 6.8 (4.3-11.1) K/mcL RBC 3.65 L (3.82-4.97) M/mcL Hgb 9.9 L (11.5-15.4) g/dL Hct 33.4 L (35.3-44.9) % MCV 91.5 (83.0-100.0) fL MCH 27.1 L (28.0-33.3) pg MCHC 29.6 L (31.6-35.5) g/dL RDW 13.4 (11.5-14.5) % Plt Count 219 (140-400) K/mcL MPV 9.8 (9.4-12.4) fL Immature Gran % 0.6 (0-4) % Seg Neutrophils % 85.3 % Lymphocytes % 6.0 % Monocytes % 6.2 % Eosinophils % 1.6 % Basophils % 0.3 % Neutrophils # 5.8 (1.6-8.9) K/mcL Lymphocytes # 0.4 L (0.6-4.6) K/mcL Monocytes # 0.4 (0.0-1.3) K/mcL Eosinophils # 0.1 (0.0-0.6) K/mcL Basophils # 0.0 (0.0-0.2) K/mcL Sodium 140 (136-145) mEq/L Potassium 3.3 L (3.5-5.1) mEq/L Chloride 102 (98-107) mEq/L Carbon Dioxide 30 H (23-29) mEq/L BUN 14 (8-23) mg/dL Creatinine 0.82 (0.60-1.20) mg/dL Est GFR ( Amer) > 60 (> 60) Est GFR (Non-Af Amer) > 60 (> 60) BUN/Creatinine Ratio 17 (6-26) Glucose 150 H (70-105) mg/dL Calculated Osmolality 293 (280-300) Calcium 8.8 (8.6-10.3) mg/dL Creatine Kinase 30 (30-223) Units/L Troponin I < 0.03 (< 0.04) ng/mL Attestation Statement - Attestation Attestation: Resident Attestation: I examined this patient and my medical decision making was reviewed with the Resident Physician. I agree with the documented findings, disposition and treatment plan as described except to the extent set forth below. We independently had urgb-[id number] contact with the patient. Patient with fall at home earlier in the day. Patient history is questionable for syncope versus mechanical fall. Patient will undergo further evaluation for both. Patient is complaining of pain in the left hip. On evaluation she is in moderate distress secondary to pain. Workup is pending. Moderate distress secondary to pain, no evidence of ecchymosis or abrasions. Lungs clear to auscultation, left hip tenderness. Femoral neck fracture on x-ray. Patient admitted
--- NOTE | 2018-04-13 15:00 | Orthopedic Consult Note ---
Date of Encounter: 04/13/18 Time of Encounter: 16:00 Assessment and Plan (1) Left displaced femoral neck fracture Current Visit: Yes Status: Acute Assessment: Left femoral neck fracture Plan: Discussed with Dr. Goldsmith. Plan for surgical intervention -- Left hip hemiarthroplasty for 04/15 Avoid left hip motion, Non-weightbearing. Apply ice as needed for pain/swelling Patient to admit to hospitalist and will require surgical clearance Pain medication per primary Thank you for this consultation. History of Present Illness Chief complaint: left hip pain HPI: Ms. Macedo is a 87 year old female presenting to [facility] for left hip pain after fall. she states she was putting trash into her kitchen can and lost her balance and fell backward on to her bottom. She states she had immediate pain and was unable to stand. She admits to increasing pain. She denies head trauma or LOC. She admits to history of left ankle fracture appx 2 years ago repaired with ORIF by Dr. Byrd. She denies history of DEXA scanning however states that she has weak bones. Admits to history of hypertension and chronic right facial nerve pain currently managed by PCP. XRay reviewed: Decreased mineral bone density Acute, slightly displaced and mildly angulated femoral neck fracture with prox imal migration of the femur On exam: Patient resting supine on ED cot. Patient presents with family: spouse, daughter, and two sons. She is alert and oriented x 3 and in no acute distress. Left leg shortened. Well healed incision to the left ankle noted. No erythema or ecchymosis noted to LLE. Tenderness to the left lateral thigh and hip. No calf tenderness or warmth noted b/l LE. Ankle and foot ROM intact bilaterally. Neurovascularly intact b/l LE. Assessment: Left femoral neck fracture Plan: Discussed with Dr. Goldsmith. Plan for surgical intervention -- Left hip hemiarthroplasty for 04/15 Avoid left hip motion, Non-weightbearing. Apply ice as needed for pain/swelling Patient to admit to hospitalist and will require surgical clearance Pain medication per primary Thank you for this consultation. Past Med Surg Social Fam HX - Past Medical History Medical history: arthritis, CHF, hypertension, other Additional medical history: Neuralgia Psychiatric history: anxiety - Past Surgical History Surgical History: appendectomy, cholecystectomy, hysterectomy - Social History Smoking Status: Never smoker Smokeless Tobacco Status: No Alcohol use: none Drug use: none Medications and Allergies Lisinopril [Zestril] 40 mg PO DAILY 07/07/15 [History] Potassium Chloride [Klor-Con Sprinkle] 10 meq PO DAILY 07/07/15 [History] amLODIPine [Norvasc] 7.5 mg PO DAILY 06/16/16 [History] CarBAMazepine [Carbamazepine ER] 400 mg PO Q12H 07/08/16 [History] Furosemide [Lasix] 40 mg PO QAM 07/08/16 [History] Aspirin [Adult Aspirin Regimen] 81 mg PO DAILY 11/01/17 [History] Folic Acid 1 mg PO DAILY 11/01/17 [History] Allergy/AdvReac Type Severity Reaction Status Date / Time baclofen Allergy Hives Verified 07/08/16 15:14 clindamycin Allergy Hives Verified 07/08/16 15:14 clonidine Allergy Hives Verified 07/08/16 15:14 codeine Allergy Hives Verified 07/08/16 15:14 hydrocodone [From Vicodin] Allergy Hives Verified 07/08/16 15:14 lovastatin Allergy Hives Verified 07/08/16 15:14 gabapentin AdvReac Shakiness Verified 06/16/16 00:22 All Systems Reviewed: The remainder of the systems were reviewed and are negative Physical Exam - Constitutional Vitals: Temp Pulse Resp BP Pulse Ox 98.0 F 66 18 156/122 97 04/13/18 13:46 04/13/18 13:46 04/13/18 13:46 04/13/18 13:46 04/13/18 13:46 Results - Labs Result Diagrams: 04/13/18 14:03 04/13/18 14:03 Labs: Abnormal lab results RBC 3.65 M/mcL (3.82-4.97) L 04/13/18 14:03 Hgb 9.9 g/dL (11.5-15.4) L 04/13/18 14:03 Hct 33.4 % (35.3-44.9) L 04/13/18 14:03 MCH 27.1 pg (28.0-33.3) L 04/13/18 14:03 MCHC 29.6 g/dL (31.6-35.5) L 04/13/18 14:03 Lymphocytes # 0.4 K/mcL (0.6-4.6) L 04/13/18 14:03 Potassium 3.3 mEq/L (3.5-5.1) L 04/13/18 14:03 Carbon Dioxide 30 mEq/L (23-29) H 04/13/18 14:03 Glucose 150 mg/dL (70-105) H 04/13/18 14:03 H & H 04/13/18 Range/Units 14:03 Hgb 9.9 L (11.5-15.4) g/dL Hct 33.4 L (35.3-44.9) % All other labs normal. Consult Discharge Plan - Plan
[2018-04-13 15:32] LABS: Bilirubin,Urine Negative (Negative); Blood,Urine Negative (Negative); Clarity,Urine Clear (Clear); Color,Urine Yellow (Yellow); Glucose,Urine (UA) Normal (Normal); Ketones,Urine Negative (Negative); Leukocyte Esterase,Urine Negative (Negative); Nitrite,Urine Negative (Negative); Protein,Urine Negative (Neg-Trace); Urobilinogen,Urine Normal (Normal)
[2018-04-13] MEDS ORDERED: *HR* OxyCODONE/APAP 10/325 TABLET PO STA (15:56)
[2018-04-13] MEDS ORDERED: *HR* HYDROmorphone (PF) 1 MG/ML SYRINGE IVP ONE (15:58)
[2018-04-13] MEDS ORDERED: Ketorolac 30 MG/ML VIAL IVP ONE (17:05)
[2018-04-13] MEDS ORDERED: Naloxone 0.4 MG/ML INJ IVP PRN (17:49)
[2018-04-13] MEDS ORDERED: OXYCODONE Oral CONC 10 MG/0.5 ML ORAL.SYG SL PRN (17:59)
--- NOTE | 2018-04-13 18:23 | Internal Med History&Physical ---
Date of Encounter: 04/13/18 Time of Encounter: 17:30 Internal Medicine - H&P: HPI Chief complaint: Fall; left hip fx Admitted From: Home Plans for Post Hospital Care: [facility] History of present illness: The patient is an 87-year-old woman. She experienced a fall at her home today morning. Subsequently, she sustained a fracture to her left hip. The patient usually walks with a walker. It started about 2 years ago, after she broke her right ankle. Today morning she was bending over to put something in the trash can. Then, she evidently lost her balance. Became dizzy/lightheaded for a short period of time, stumbled backwards and fell on her left hip. The patient was doing fine (normal self) before the fall happened. She has not experienced any chest pain or difficulty breathing recently. She seems to have normal bowel movements/urination. I examined her in the emergency room. She continues to have significant pain in the area of left hip. PAST MEDICAL HX: She has been treated for hypertension and trigeminal neuralgia. She takes her Lasix for swelling of her lower legs/ankles. She does have mild chronic anemia. She has never been diagnosed with a heart disease/CHF/coronary artery disease. PAST FAMILY HX: Positive for htn. PAST SOCIAL HX: See below.. REVIEW OF SYSTEMS: All 14 organ systems were reviewed by me with the patient. Positive and pertinent negative findings are listed above. The rest of organ systems is negative. PHYSICAL EXAM: Skin: Free of rash and discoloration. Musculoskeletal: Her left leg is shorter than the right one. It is in internal rotation. Eyes: Sclera is white. There is no discharge from eyes. ENMT: Oral/pharyngeal mucosa is normal in appearance. There is no discharge from nose or ears. Respiratory: Normal breath sounds with no crackles and wheezes bilaterally. CV: Heart is regular with no gallop or murmur. GI: Abdomen is flat and soft with no palpable mass or visceromegaly. : There is no tenderness in patient's flanks bilaterally. Neuro exam: He has good strength in upper and lower extremities. I did not check range of motion in her left lower extremity. He has normal eye movements. Psychiatric: He has normal affect. His thought process is appropriate to the situation. ADDITIONAL DATA: CBC shows hemoglobin of 9.9 with a WBC of 6.8 thousand and normal platelet count. Her hemoglobin is usually around 10. Sodium is 140 with potassium of 3.3 and creatinine of 0.82. Random glucose is 150. Troponin he said below 0.03. UA shows normal findings. X-rays of left hip are showing left hip fracture. A/P: Left hip fracture. Orthopedic surgery has been consulted. The patient will likely have surgery either tomorrow or after tomorrow. We will control her pain with scheduled IV Toradol, scheduled by mouth Percocet and when necessary low- dose sublingual oxycodone. Mild anemia. We have to repeat her CBC tomorrow as she likely lost some blood due to the fracture. Hypokalemia. Likely secondary to Lasix. We will decrease dose of Lasix. We will give her a supplemental potassium chloride. Hypertension. We will continue her lisinopril and amlodipine. Trigeminal neuralgia. We will keep her on carbamazepine. Past Med Surg Social Fam HX - Past Medical History Medical history: arthritis, CHF, hypertension, other Additional medical history: Neuralgia Psychiatric history: anxiety - Past Surgical History Surgical History: appendectomy, cholecystectomy, hysterectomy - Social History Smoking Status: Never smoker Smokeless Tobacco Status: No Alcohol use: none Drug use: none Internal Medicine - H&P: Meds Lisinopril [Zestril] 40 mg PO DAILY 07/07/15 [History] Potassium Chloride [Klor-Con Sprinkle] 10 meq PO DAILY 07/07/15 [History] amLODIPine [Norvasc] 7.5 mg PO DAILY 06/16/16 [History] CarBAMazepine [Carbamazepine ER] 400 mg PO Q12H 07/08/16 [History] Furosemide [Lasix] 40 mg PO QAM 07/08/16 [History] Aspirin [Adult Aspirin Regimen] 81 mg PO DAILY 11/01/17 [History] Folic Acid 1 mg PO DAILY 11/01/17 [History] Allergy/AdvReac Type Severity Reaction Status Date / Time baclofen Allergy Hives Verified 07/08/16 15:14 clindamycin Allergy Hives Verified 07/08/16 15:14 clonidine Allergy Hives Verified 07/08/16 15:14 codeine Allergy Hives Verified 07/08/16 15:14 hydrocodone [From Vicodin] Allergy Hives Verified 07/08/16 15:14 lovastatin Allergy Hives Verified 07/08/16 15:14 gabapentin AdvReac Shakiness Verified 06/16/16 00:22 - Constitutional Vitals: Temp Pulse Resp BP Pulse Ox 98.0 F 68 18 156/77 94 04/13/18 13:46 04/13/18 17:44 04/13/18 17:44 04/13/18 13:46 04/13/18 17:44 General appearance: Present: A&O X 3, answers questions appropriately Exam: xx Internal Med - H&P Results - Labs CBC & Chem 7: 04/13/18 14:03 04/13/18 14:03 Labs: Short CBC 04/13/18 Range/Units 14:03 WBC 6.8 (4.3-11.1) K/mcL Hgb 9.9 L (11.5-15.4) g/dL Hct 33.4 L (35.3-44.9) % Plt Count 219 (140-400) K/mcL Neutrophils # 5.8 (1.6-8.9) K/mcL BMP 04/13/18 14:03 Sodium 140 Potassium 3.3 L Chloride 102 Carbon Dioxide 30 H BUN 14 Creatinine 0.82 Glucose 150 H Calcium 8.8 Cardiac Enzymes 04/13/18 Range/Units 14:03 Troponin I < 0.03 (< 0.04) ng/mL Urine 04/13/18 Range/Units 15:15 Urine Color Yellow (Yellow) Urine Clarity Clear (Clear) Urine pH 7.0 (5.0-8.0) pH Units Ur Specific [place] 1.010 (1.010-1.025) Urine Protein Negative (Neg-Trace) mg/dL Urine Glucose (UA) Normal (Normal) mg/dL - Impressions ITS Impressions Chest X-Ray 04/13/18 13:53 IMPRESSION: 1. Mild bilateral pleural effusions and basilar atelectasis versus pneumonia. No acute congestive heart failure. 2. Decreased bone mineral density. 3. Acute mildly displaced and angulated left femoral neck fracture. D/ / 04/13/2018 14:39:42 Carter Beckwith MD / [facility] Interpreting Provider: Carter Beckwith MD Head CT 04/13/18 13:54 IMPRESSION: No acute intracranial abnormality. Chronic microvascular ischemic changes. D/ / Roger Corrales / [facility] Interpreting Provider: Roger Corrales Hip X-Ray 04/13/18 13:54 IMPRESSION: 1. Mild bilateral pleural effusions and basilar atelectasis versus pneumonia. No acute congestive heart failure. 2. Decreased bone mineral density. 3. Acute mildly displaced and angulated left femoral neck fracture. D/ / 04/13/2018 14:39:42 Carter Beckwith MD / [facility] Interpreting Provider: Carter Beckwith MD - Assessment and plan (1) Left displaced femoral neck fracture Current Visit: Yes Status: Acute (2) Anemia Current Visit: Yes Status: Acute Qualifiers: Anemia type: unspecified type Qualified Code(s): D64.9 - Anemia, unspecified (3) Hypokalemia Current Visit: No Status: Acute (4) Hypertension Current Visit: No Status: Chronic Qualifiers: Hypertension type: essential hypertension Qualified Code(s): I10 - Essential (primary) hypertension (5) Trigeminal neuralgia Current Visit: No Status: Chronic - Time Spent With Patient Total time spent is greater than 50% in coordination of care (as documented) at patient's floor/unit and/or counseling patient: 25 - 35 minutes - VTE Deep Vein Thrombosis/Pulmonary Embolism Present on Admission: No
[2018-04-13] MEDS: CarBAMazepine XR (12 hr) 100 MG TAB PO SCH (19:26)
[2018-04-13] MEDS: *HR* OxyCODONE/APAP 5/325 TABLET PO SCH (22:39)
[2018-04-14] MEDS: Ketorolac 30 MG/ML VIAL IVP SCH ×5 (00:12→23:23)
[2018-04-14 05:25] LABS: Basophils % 0.5 %; Eosinophils # 0.2 K/mcL (0.0-0.6); Eosinophils % 4.2 %; Hematocrit 30.5 % (35.3-44.9); Hemoglobin 9.3 g/dL (11.5-15.4); Immature Granulocytes % 0.5 % (0-4); Lymphocytes % 9.9 %; Mean Corpuscular HGB Conc 30.5 g/dL (31.6-35.5); Mean Corpuscular Volume 88.7 fL (83.0-100.0); Mean Platelet Volume 10.5 fL (9.4-12.4); Monocytes # 0.5 K/mcL (0.0-1.3); Monocytes % 8.9 %; Neutrophils # 4.2 K/mcL (1.6-8.9); Platelet Count 201 K/mcL (140-400); Red Blood Count 3.44 M/mcL (3.82-4.97); Red Cell Distribution Width 13.5 % (11.5-14.5)
[2018-04-14] MEDS: CarBAMazepine XR (12 hr) 100 MG TAB PO SCH ×2 (05:29→18:10)
[2018-04-14 05:48] LABS: BUN/Creatinine Ratio 15 (6-26); Blood Urea Nitrogen 13 mg/dL (8-23); Calcium 8.9 mg/dL (8.6-10.3); Carbon Dioxide 31 mEq/L (23-29); Chloride 101 mEq/L (98-107); Glucose 106 mg/dL (70-105); Lymphocytes # 0.5 K/mcL (0.6-4.6); Magnesium 2.3 mg/dL (1.6-2.6); Osmolality,Calculated 291 (280-300); Platelet Estimate Normal (Normal); Potassium 3.9 mEq/L (3.5-5.1); Sodium 140 mEq/L (136-145); eGFR For Non-African Americans > 60 (> 60)
[2018-04-14] MEDS: *HR* OxyCODONE/APAP 5/325 TABLET PO SCH ×4 (09:15→22:56)
--- NOTE | 2018-04-14 10:15 | Internal Med Progress Note ---
<Campos,Faraaz - Last Filed: 04/14/18 11:26> Hospitalist Progress Note - Encounter Date of Encounter: 04/14/18 Time of Encounter: 10:13 - Subjective Interval History: Pt seen and examined resting comfortable at bedside in no acute distress. Notes pain is well controlled currently s/p left hip fracture. Denies headache, chest pain, SOB, abdominal pain, extremity discomfort. Plan for left hip hemiarthroplasty tomorrow per ortho. - Exam Vitals: Temp Pulse Resp BP Pulse Ox 99.2 F 72 15 119/69 95 04/14/18 06:44 04/14/18 06:44 04/14/18 06:44 04/14/18 06:44 04/14/18 06:44 Exam: GEN: AOx3, NAD, resting comfortably sleeping in bed HEENT: Atraumatic, Normocephalic, EOMI CARDIO: RRR, no murmurs, rubs, gallups RESP: CTAB, no wheezes, rales, rhonchi NEURO: CN 2 - 12 intact; No focal deficits EXT: Tenderness to palpation of LLE; no lower extremity edema - Assessment and Plan (1) Left displaced femoral neck fracture Current Visit: Yes Status: Acute Assessment and Plan: This is an 87 y/o F with PMHx HTN, trigeminal neuralgia who presents s/p mechanical fall. Pt denies syncopal episode, head trauma. Endorses pain in her left hip. Hip XR indicated Left Femoral Neck Fracture. PLAN: Per ortho, plan for L. Hip Hemiarthroplasty tomorrow (04/15) Will obtain echo for cardiac clearance (2) Anemia Current Visit: Yes Status: Acute Assessment and Plan: Hb/Hct = 9.9/33.4 on presentation MCV = 91.5 Hb this morning = 9.3 PLAN: Cont to monitor Repeat CBC tomorrow (3) Hypokalemia Current Visit: No Status: Acute Assessment and Plan: K = 3.3 on presentation; Currently 3.9 PLAN: Cont Potassium Chloride (4) Hypertension Current Visit: No Status: Chronic Assessment and Plan: BP this morning = 119/69 Per nursing, had elevated BPs overnight PLAN: Monitor vitals Cont Amlodipine, Lisinpril, Lopressor, and Lasix. (5) Trigeminal neuralgia Current Visit: No Status: Chronic Assessment and Plan: Hx Trigeminal Neuralgia PLAN: Cont Carbamazepine DVT Prophylaxis: Heparin SQ 5000U Q12h; Hold prior to surgery - Time Spent with Patient Total time spent is greater than 50% in coordination of care (as documented) at patient's floor/unit and/or counseling patient: less than 15 minutes Plan of Care Discussed with: patient Internal Medicine: Result - Labs CBC & Chem 7: 04/14/18 04:54 04/14/18 04:54 Labs: Short CBC 04/13/18 04/14/18 Range/Units 14:03 04:54 WBC 6.8 5.5 (4.3-11.1) K/mcL Hgb 9.9 L 9.3 L (11.5-15.4) g/dL Hct 33.4 L 30.5 L (35.3-44.9) % Plt Count 219 201 (140-400) K/mcL Neutrophils # 5.8 4.2 (1.6-8.9) K/mcL BMP 04/13/18 04/14/18 14:03 04:54 Sodium 140 140 Potassium 3.3 L 3.9 Chloride 102 101 Carbon Dioxide 30 H 31 H BUN 14 13 Creatinine 0.82 0.88 Glucose 150 H 106 H Calcium 8.8 8.9 Cardiac Enzymes 04/13/18 Range/Units 14:03 Troponin I < 0.03 (< 0.04) ng/mL Urine 04/13/18 Range/Units 15:15 Urine Color Yellow (Yellow) Urine Clarity Clear (Clear) Urine pH 7.0 (5.0-8.0) pH Units Ur Specific [place] 1.010 (1.010-1.025) Urine Protein Negative (Neg-Trace) mg/dL Urine Glucose (UA) Normal (Normal) mg/dL - ABG Interpretation ABG results: PT/INR, D-dimer PT 11.8 Seconds (9.4-12.1) 04/13/18 14:03 - Impressions Impressions Chest X-Ray 04/13/18 13:53 IMPRESSION: 1. Mild bilateral pleural effusions and basilar atelectasis versus pneumonia. No acute congestive heart failure. 2. Decreased bone mineral density. 3. Acute mildly displaced and angulated left femoral neck fracture. D/ / 04/13/2018 14:39:42 Carter Beckwith MD / [facility] Interpreting Provider: Carter Beckwith MD Head CT 04/13/18 13:54 IMPRESSION: No acute intracranial abnormality. Chronic microvascular ischemic changes. D/ / Roger Corrales / [facility] Interpreting Provider: Roger Corrales Hip X-Ray 04/13/18 13:54 IMPRESSION: 1. Mild bilateral pleural effusions and basilar atelectasis versus pneumonia. No acute congestive heart failure. 2. Decreased bone mineral density. 3. Acute mildly displaced and angulated left femoral neck fracture. D/ / 04/13/2018 14:39:42 Carter Beckwith MD / [facility] Interpreting Provider: Carter Beckwith MD - VTE Deep Vein Thrombosis/Pulmonary Embolism Present on Admission: No Consult Discharge Plan - Plan Referrals: Estrada Hooper DO [Primary Care Provider] - <Jorge Moreno - Last Filed: 04/14/18 11:43> Hospitalist Progress Note - Encounter Date of Encounter: 04/14/18 Time of Encounter: 09:50 - Exam Vitals: Temp Pulse Resp BP Pulse Ox 99.2 F 72 15 119/69 95 04/14/18 06:44 04/14/18 06:44 04/14/18 06:44 04/14/18 06:44 04/14/18 06:44 - Assessment and Plan (1) Left displaced femoral neck fracture Current Visit: Yes Status: Acute (2) Hypertension Current Visit: No Status: Chronic (3) Trigeminal neuralgia Current Visit: No Status: Chronic (4) Hypokalemia Current Visit: No Status: Acute (5) Anemia Current Visit: Yes Status: Acute - Time Spent with Patient Total time spent is greater than 50% in coordination of care (as documented) at patient's floor/unit and/or counseling patient: Internal Medicine: Result - Labs CBC & Chem 7: 04/14/18 04:54 11/13/18 04:54 Labs: Short CBC 04/13/18 04/14/18 Range/Units 14:03 04:54 WBC 6.8 5.5 (4.3-11.1) K/mcL Hgb 9.9 L 9.3 L (11.5-15.4) g/dL Hct 33.4 L 30.5 L (35.3-44.9) % Plt Count 219 201 (140-400) K/mcL Neutrophils # 5.8 4.2 (1.6-8.9) K/mcL BMP 04/13/18 04/14/18 14:03 04:54 Sodium 140 140 Potassium 3.3 L 3.9 Chloride 102 101 Carbon Dioxide 30 H 31 H BUN 14 13 Creatinine 0.82 0.88 Glucose 150 H 106 H Calcium 8.8 8.9 Cardiac Enzymes 04/13/18 Range/Units 14:03 Troponin I < 0.03 (< 0.04) ng/mL Urine 04/13/18 Range/Units 15:15 Urine Color Yellow (Yellow) Urine Clarity Clear (Clear) Urine pH 7.0 (5.0-8.0) pH Units Ur Specific [place] 1.010 (1.010-1.025) Urine Protein Negative (Neg-Trace) mg/dL Urine Glucose (UA) Normal (Normal) mg/dL - ABG Interpretation ABG results: PT/INR, D-dimer PT 11.8 Seconds (9.4-12.1) 04/13/18 14:03 - Impressions Impressions Chest X-Ray 04/13/18 13:53 IMPRESSION: 1. Mild bilateral pleural effusions and basilar atelectasis versus pneumonia. No acute congestive heart failure. 2. Decreased bone mineral density. 3. Acute mildly displaced and angulated left femoral neck fracture. D/ / 04/13/2018 14:39:42 Carter Beckwith MD / [facility] Interpreting Provider: Carter Beckwith MD Head CT 04/13/18 13:54 IMPRESSION: No acute intracranial abnormality. Chronic microvascular ischemic changes. D/ / Roger Corrales / [facility] Interpreting Provider: Roger Corrales Hip X-Ray 04/13/18 13:54 IMPRESSION: 1. Mild bilateral pleural effusions and basilar atelectasis versus pneumonia. No acute congestive heart failure. 2. Decreased bone mineral density. 3. Acute mildly displaced and angulated left femoral neck fracture. D/ / 04/13/2018 14:39:42 Carter Beckwith MD / [facility] Interpreting Provider: Carter Beckwith MD - Attending Attestation I saw evaluated and examined this patient and my medical decision-making was reviewed with the Resident Physician, Pamela Campos. I agree with the documented findings, disposition and treatment plan as described except to any changes set forth below. We independently had [id number] contact with the patient. 87-year-old female with acute left femoral neck fracture. Pain is well controlled at this time. No new complaints. Awaiting surgery that scheduled for tomorrow. On examination, patient is awake but very somnolent. Denies any pain in the left hip. Heart sounds are normal. It sounds are also normal. Abdomen is soft, nontender. Tenderness to palpation at left hip region. Left-sided fracture: Acute. Status post mechanical fall. Orthopedics following. Plan for surgery tomorrow with left hip hemiarthroplasty. Will get 2-D echocardiogram for preop evaluation. Patient did undergo surgery last year without any acute issues. Most likely patient will be at intermediate risk for complications from surgery and anesthesia. Anemia: Hemoglobin 9.3 today. We will monitor closely. May require blood transfusion after surgery. Essential hypertension: Continue lisinopril, amlodipine. DVT prophylaxis with subcutaneous heparin. Moderate risk for complications. <Pamela Campos - Last Filed: 04/14/18 11:26> (2) Anemia Qualifiers: Anemia type: unspecified type Qualified Code(s): D64.9 - Anemia, unspecified (4) Hypertension Qualifiers: Hypertension type: essential hypertension Qualified Code(s): I10 - Essential (primary) hypertension <Jorge Moreno - Last Filed: 04/14/18 11:43> (2) Hypertension Qualifiers: Hypertension type: essential hypertension Qualified Code(s): I10 - Essential (primary) hypertension (5) Anemia Qualifiers: Anemia type: unspecified type Qualified Code(s): D64.9 - Anemia, unspecified
[2018-04-14] MEDS: Furosemide 40 MG TABLET PO SCH (11:26)
[2018-04-14] MEDS: Aspirin Enteric Coated 81 MG Tablet PO SCH (11:27)
[2018-04-14] MEDS: amLODIPine 5 MG TABLET PO SCH (11:27)
[2018-04-14] MEDS: Folic Acid 1 MG TABLET PO SCH (11:27)
[2018-04-14] MEDS: Lisinopril 20 MG TABLET PO SCH (11:27)
[2018-04-14] MEDS: *HR* Heparin 5,000 UNIT/ML VIAL SQ SCH ×2 (11:45→18:10)
--- NOTE | 2018-04-14 12:00 | Orthopedics Progress Note ---
Date of Encounter: 04/14/18 Time of Encounter: 12:00 - Assessment and Plan (1) Left displaced femoral neck fracture Current Visit: Yes Status: Acute Type and cross, with 2 units on hold tonight. Consent reviewed, signed by patient Plan for a Left THR 04/15 with Subjective Principal diagnosis: left hip fracture Interval history: Hospital day #1 - Patient admitted for Left hip fracture and orthopedic management. Patient doing well, pain controlled. Afebrile, vitals stable. Will Type and cross today. Objective Vital signs: Vital Signs Temp Pulse Resp BP Pulse Ox 04/14/18 06:44 99.2 F 72 15 119/69 95 04/14/18 06:27 145/73 04/14/18 05:02 98.2 F 70 14 178/77 94 04/14/18 00:52 97.5 F L 62 14 129/77 96 04/13/18 22:45 98 04/13/18 18:57 97.6 F 77 16 161/74 98 04/13/18 18:52 97.9 F 80 16 169/73 94 04/13/18 17:44 68 18 94 04/13/18 13:46 98.0 F 66 18 156/77 97 Intake and Output 04/13/18 04/14/18 04/14/18 23:59 07:59 15:59 Intake Total 0 / 0 0 / 0 Output Total 950 / 950 150 / 150 Balance -950 / -950 -150 / -150 Intake: Oral 0 / 0 0 / 0 Output: Catheter 950 / 950 150 / 150 Other: Weight 68.2 kg - Labs CBC & BMP: 04/14/18 04:54 04/14/18 04:54 Labs: Abnormal lab results RBC 3.44 M/mcL (3.82-4.97) L 04/14/18 04:54 Hgb 9.3 g/dL (11.5-15.4) L 04/14/18 04:54 Hct 30.5 % (35.3-44.9) L 04/14/18 04:54 MCH 27.0 pg (28.0-33.3) L 04/14/18 04:54 MCHC 30.5 g/dL (31.6-35.5) L 04/14/18 04:54 Lymphocytes # 0.5 K/mcL (0.6-4.6) L 04/14/18 04:54 Carbon Dioxide 31 mEq/L (23-29) H 04/14/18 04:54 Glucose 106 mg/dL (70-105) H 04/14/18 04:54 - VTE Deep Vein Thrombosis/Pulmonary Embolism Present on Admission: No Consult Discharge Plan - Plan Referrals: Estrada Hooper DO [Primary Care Provider] -
[2018-04-14] MEDS ORDERED: Perflutren Lipid Microsphere 1.3 ML in 0.9 % Sodium Chloride 8.7 ML IVP ONE (19:23)
--- NOTE | 2018-04-14 20:02 | Anesthesia Evaluation PreOp ---
Addendum entered and electronically signed by Ree Duff MD 04/15/18 12:38: ECHO 04/14/18 result Impressions: LVEF 65%. Normal LV chamber size, wall thickness and systolic function. Mild left ventricular diastolic dysfunction. Normal right ventricular structure and function. Mild tricuspid regurgitation. Mild to moderate pulmonary hypertension. Laboratory Tests 04/14/18 04/15/18 04:54 00:12 WBC 5.5 RBC 3.44 L Hgb 8.9 L Hct 28.9 L Plt Count 201 Vital Signs/O2 Sat, Most Current Temp Pulse Resp BP Pulse Ox 99.1 F 79 20 187/92 94 04/15/18 11:07 04/15/18 11:07 04/15/18 11:07 04/15/18 11:07 04/15/18 11:07 Pt also received beta [place] at 11:22am this morning I obtained consent from Son Ike Macedo at [phone] for General Anesthesia. Original Note: Date of Encounter: 04/14/18 Time of Encounter: 21:50 - Past History Planned Operation: L-Aakash Hip Cardiac History: CHF ("takes Lasix for foot swelling"), HTN, Other (Chronic Anemia) Pulmonary History: Snore, ALBERT Dx (??) [employer] History: Other (Trigeminal Neuralgia) Other Medical History: Denies Any Significant HX Anesthesia History: No Prior Anesthetic Complications, Past Anesthesia (Adali, Hyster, R-ankle ORIF) Alcohol Use: none Drug use: none Medications and Allergies Lisinopril [Zestril] 40 mg PO DAILY 07/07/15 [History] Potassium Chloride [Klor-Con Sprinkle] 10 meq PO DAILY 07/07/15 [History] amLODIPine [Norvasc] 7.5 mg PO DAILY 06/16/16 [History] CarBAMazepine [Carbamazepine ER] 400 mg PO Q12H 07/08/16 [History] Furosemide [Lasix] 40 mg PO QAM 07/08/16 [History] Aspirin [Adult Aspirin Regimen] 81 mg PO DAILY 11/01/17 [History] Folic Acid 1 mg PO DAILY 11/01/17 [History] Metoprolol Tartrate [Lopressor] 25 mg PO BID 04/14/18 [History] Allergy/AdvReac Type Severity Reaction Status Date / Time baclofen Allergy Hives Verified 07/08/16 15:14 clindamycin Allergy Hives Verified 07/08/16 15:14 clonidine Allergy Hives Verified 07/08/16 15:14 codeine Allergy Hives Verified 07/08/16 15:14 hydrocodone [From Vicodin] Allergy Hives Verified 07/08/16 15:14 lovastatin Allergy Hives Verified 07/08/16 15:14 gabapentin AdvReac Shakiness Verified 06/16/16 00:22 - Meds/Allergy Pre-op Review Medications Reviewed: Yes Allergies Reviewed: Yes Beta Blockers on Current Med List: No Anesthesia Results - Labs 04/14/18 04:54 04/14/18 04:54 Laboratory Tests 04/13/18 04/14/18 14:03 04:54 PT 11.8 INR 1.0 APTT 30.5 Est GFR (Non-Af Amer) > 60 Impressions Chest X-Ray 04/13/18 13:53 IMPRESSION: 1. Mild bilateral pleural effusions and basilar atelectasis versus pneumonia. No acute congestive heart failure. 2. Decreased bone mineral density. 3. Acute mildly displaced and angulated left femoral neck fracture. D/ / 04/13/2018 14:39:42 Carter Beckwith MD / [facility] Inter[facility]ting Provider: Carter Beckwith MD Head CT 04/13/18 13:54 IMPRESSION: No acute intracranial abnormality. Chronic microvascular ischemic changes. D/ / Roger Corrales / [facility] Interpreting Provider: Roger Corrales Hip X-Ray 04/13/18 13:54 IMPRESSION: 1. Mild bilateral pleural effusions and basilar atelectasis versus pneumonia. No acute congestive heart failure. 2. Decreased bone mineral density. 3. Acute mildly displaced and angulated left femoral neck fracture. D/ / 04/13/2018 14:39:42 Carter Beckwith MD / [facility] Interpreting Provider: Carter Beckwith MD - Imaging EKG: report reviewed (52bpm - SINUS BRADYCARDIA Electronically Signed On 06-17-16 09:55:34 EST by Everton Villar MD) Anesthesia Exam Vital Signs Temp Pulse Resp BP Pulse Ox 04/14/18 13:52 131/74 04/14/18 12:04 98.5 F 83 17 184/94 95 04/14/18 06:44 99.2 F 72 15 119/69 95 04/14/18 06:27 145/73 04/14/18 05:02 98.2 F 70 14 178/77 94 04/14/18 00:52 97.5 F L 62 14 129/77 96 04/13/18 22:45 98 Intake and Output 04/14/18 04/14/18 04/14/18 07:59 15:59 23:59 Intake Total 0 / 0 110 / 110 Output Total 150 / 150 Balance -150 / -150 110 / 110 Intake: Oral 0 / 0 110 / 110 Output: Catheter 150 / 150 Other: Meal Lunch Percent of Meal Consumed 75% Height: 5'6" Weight: 150# BMI = 24 NPO (# of Hours): MNOc - HEENT Pupil (Motor): Pupils equal, EOMI Teeth: Poor dentition Oral Opening: Greater than 3 Anesthesia Assess/Plan ASA Score: 3 (HTN, CHF, Hip Fx) Anesthetic Plan: General, Spinal Reason for No Neuroaxial/Regional Block: Patient refusal Monitoring Plan: Standard Monitors Recovery Plan: PACU
[2018-04-15 01:29] LABS: Hematocrit 28.9 % (35.3-44.9); Hemoglobin 8.9 g/dL (11.5-15.4)
[2018-04-15] MEDS: *HR* Heparin 5,000 UNIT/ML VIAL SQ SCH ×2 (05:13→17:28)
[2018-04-15] MEDS: Ketorolac 30 MG/ML VIAL IVP SCH ×2 (05:13→12:30)
[2018-04-15] MEDS: CarBAMazepine XR (12 hr) 100 MG TAB PO SCH ×2 (05:14→17:28)
--- NOTE | 2018-04-15 06:44 | Orthopedics Progress Note ---
Date of Encounter: 04/15/18 Time of Encounter: 06:43 Subjective Principal diagnosis: left hip fracture Interval history: Patient seen this morning displaced left hip fracture plan for left hip hemiarthroplasty this morning. We reviewed the risks and benefits as well as recovery. All questions were answered. The patient agreed to this treatment plan and appeared to understand the plan is reviewed. Objective Vital signs: Vital Signs Temp Pulse Resp BP Pulse Ox 04/15/18 06:36 98.4 F 68 18 170/80 95 04/15/18 03:38 97.5 F L 88 15 145/78 92 04/14/18 22:46 97.4 F L 61 16 126/67 95 04/14/18 20:57 61 16 111/62 95 04/14/18 13:52 131/74 04/14/18 12:04 98.5 F 83 17 184/94 95 04/14/18 06:44 99.2 F 72 15 119/69 95 Intake and Output 04/14/18 04/14/18 04/15/18 15:59 23:59 07:59 Intake Total 110 / 110 Balance 110 / 110 Intake: Oral 110 / 110 Other: Meal Lunch Percent of Meal Consumed 75% - Labs CBC & BMP: 04/15/18 00:12 04/14/18 04:54 Labs: Abnormal lab results RBC 3.44 M/mcL (3.82-4.97) L 04/14/18 04:54 Hgb 8.9 g/dL (11.5-15.4) L 04/15/18 00:12 Hct 28.9 % (35.3-44.9) L 04/15/18 00:12 MCH 27.0 pg (28.0-33.3) L 04/14/18 04:54 MCHC 30.5 g/dL (31.6-35.5) L 04/14/18 04:54 Lymphocytes # 0.5 K/mcL (0.6-4.6) L 04/14/18 04:54 Carbon Dioxide 31 mEq/L (23-29) H 04/14/18 04:54 Glucose 106 mg/dL (70-105) H 04/14/18 04:54 - VTE Deep Vein Thrombosis/Pulmonary Embolism Present on Admission: No Consult Discharge Plan - Plan Referrals: Estrada Hooper DO [Primary Care Provider] -
[2018-04-15] MEDS: Aspirin Enteric Coated 81 MG Tablet PO SCH (09:05)
[2018-04-15] MEDS: Folic Acid 1 MG TABLET PO SCH (09:05)
[2018-04-15] MEDS ORDERED: *HR* OxyCODONE/APAP 5/325 TABLET PO PRN ×2 (09:08→15:47)
--- NOTE | 2018-04-15 10:19 | Internal Med Progress Note ---
<Fredrick Ellison S - Last Filed: 04/15/18 11:29> Hospitalist Progress Note - Encounter Date of Encounter: 04/15/18 Time of Encounter: 10:16 - Subjective Interval History: Pt is an 87yo female with PMH of CHF, HTN, anxiety, trigeminal neuragia, CAD. She was admitted on 04/13/2018 after falling down at her home. She states she didn't trip over anything but somehow got caught over her feet and fell. She states she has a hx of multiple falls and broke her ankle in 2017 after falling. She usually uses a walker. She states that she lost her balance and got some lightheadedness before she fell. The pt states she lives at home and usually does okay. In the ER she was found to have sustained a fracture to her left hip. Currently the pt is laying in bed. She has no acute complaints or concerns. Pain is well controlled. Pt denies fever, chills, chest pain, SOB, or abd pain. - Exam Vitals: Temp Pulse Resp BP Pulse Ox 98.4 F 68 18 170/80 95 04/15/18 06:36 04/15/18 06:36 04/15/18 06:36 04/15/18 06:36 04/15/18 06:36 Exam: GEN: AOx3, NAD, resting comfortably sleeping in bed HEENT: Atraumatic, Normocephalic, moist mucus membranes CARDIO: RRR, no murmurs, rubs, gallups, CTA RESP: CTAB, no wheezes, rales, rhonchi, chest wall rises symmetrically NEURO: CN 2 - 12 intact; No focal deficits EXT: Tenderness to palpation of LLE; no lower extremity edema - Assessment and Plan (1) Left displaced femoral neck fracture Current Visit: Yes Status: Acute Assessment and Plan: Pt presented after falling on her left hip at home XRay of hip - Decreased bone mineral density - Acute mildly displaced and angulated left femoral neck fracture. Plan: - ortho consulted pt to go to OR today for sx currently NPO - pain control - PTOT consulted - SW consulted (2) Hypertension Current Visit: No Status: Chronic Assessment and Plan: BP 170/80 - continue home meds, on lopressor and norvasc - hydralazine 10mg IVP q6hr prn SBP >160 (3) Trigeminal neuralgia Current Visit: No Status: Chronic Assessment and Plan: On carbamazepine - continue home med (4) Hypokalemia Current Visit: No Status: Acute Assessment and Plan: On admission potassium 3.3 - replaced - resolved (5) DVT prophylaxis Current Visit: Yes Status: Acute Assessment and Plan: heparin sq (6) Anemia Current Visit: Yes Status: Acute Assessment and Plan: Chronic - baseline appears to be around 9-10 - hemoglboin 8.9 this morning DVT Prophylaxis: Heparin SQ 5000U Q12h; Hold prior to surgery - Time Spent with Patient Total time spent is greater than 50% in coordination of care (as documented) at patient's floor/unit and/or counseling patient: less than 15 minutes Plan of Care Discussed with: patient Internal Medicine: Result - Labs CBC & Chem 7: 04/15/18 00:12 04/14/18 04:54 Labs: Short CBC 04/15/18 Range/Units 00:12 Hgb 8.9 L (11.5-15.4) g/dL Hct 28.9 L (35.3-44.9) % - ABG Interpretation ABG results: PT/INR, D-dimer PT 11.8 Seconds (9.4-12.1) 04/13/18 14:03 - Impressions Impressions Echocardiogram 04/14/18 11:15 Impressions: LVEF 65%. Normal LV chamber size, wall thickness and systolic function. Mild left ventricular diastolic dysfunction. Normal right ventricular structure and function. Mild tricuspid regurgitation. Mild to moderate pulmonary hypertension. Left Ventricular Wall Motion: Rest Echo Findings All wall segments showed normal motion. Findings: Study Quality * Technically adequate exam. ECG Findings * Normal sinus rhythm. Left Ventricle * LVEF 65%. * Normal LV chamber size, wall thickness and systolic function. * Mild left ventricular diastolic dysfunction. Right Ventricle * Normal right ventricular structure and function. Left Atrium * Normal left atrial size. Right Atrium * Normal right atrial size. Interatrial Septum * Interatrial septum not well evaluated. Aortic Valve * Mildly calcified aortic valve leaflets. * No aortic regurgitation. * No aortic stenosis. Mitral Valve * Normal mitral valve structure. * No mitral stenosis. * Trace mitral regurgitation. Tricuspid Valve * Normal tricuspid valve structure. * No tricuspid stenosis. * Mild tricuspid regurgitation. * Estimated RVSP is RV-RA gradient 41 mmHg. * at least mild pulmonary hypertension. Pulmonic Valve * Pulmonic valve is not well visualized. * No pulmonic stenosis. * Trace pulmonic regurgitation. Aorta * Normally sized aortic root. Pericardium * The pericardium appears normal. IVC * The IVC is not well evaluated. - VTE Deep Vein Thrombosis/Pulmonary Embolism Present on Admission: No Consult Discharge Plan - Plan Referrals: Estrada Hooper DO [Primary Care Provider] - <Jorge Moreno - Last Filed: 04/15/18 14:31> Hospitalist Progress Note - Encounter Date of Encounter: 04/15/18 Time of Encounter: 14:28 - Exam Vitals: Temp Pulse Resp BP Pulse Ox 99.1 F 79 20 187/92 94 04/15/18 11:07 04/15/18 11:07 04/15/18 11:07 04/15/18 11:07 04/15/18 11:07 - Assessment and Plan (1) Hypertension Current Visit: No Status: Chronic (2) Trigeminal neuralgia Current Visit: No Status: Chronic (3) Hypokalemia Current Visit: No Status: Acute (4) DVT prophylaxis Current Visit: Yes Status: Acute (5) Left displaced femoral neck fracture Current Visit: Yes Status: Acute (6) Anemia Current Visit: Yes Status: Acute - Time Spent with Patient Total time spent is greater than 50% in coordination of care (as documented) at patient's floor/unit and/or counseling patient: Internal Medicine: Result - Labs CBC & Chem 7: 04/15/18 00:12 04/14/18 04:54 Labs: Short CBC 04/15/18 Range/Units 00:12 Hgb 8.9 L (11.5-15.4) g/dL Hct 28.9 L (35.3-44.9) % - ABG Interpretation ABG results: PT/INR, D-dimer PT 11.8 Seconds (9.4-12.1) 04/13/18 14:03 - Impressions Impressions Echocardiogram 04/14/18 11:15 Impressions: LVEF 65%. Normal LV chamber size, wall thickness and systolic function. Mild left ventricular diastolic dysfunction. Normal right ventricular structure and function. Mild tricuspid regurgitation. Mild to moderate pulmonary hypertension. Left Ventricular Wall Motion: Rest Echo Findings All wall segments showed normal motion. Findings: Study Quality * Technically adequate exam. ECG Findings * Normal sinus rhythm. Left Ventricle * LVEF 65%. * Normal LV chamber size, wall thickness and systolic function. * Mild left ventricular diastolic dysfunction. Right Ventricle * Normal right ventricular structure and function. Left Atrium * Normal left atrial size. Right Atrium * Normal right atrial size. Interatrial Septum * Interatrial septum not well evaluated. Aortic Valve * Mildly calcified aortic valve leaflets. * No aortic regurgitation. * No aortic stenosis. Mitral Valve * Normal mitral valve structure. * No mitral stenosis. * Trace mitral regurgitation. Tricuspid Valve * Normal tricuspid valve structure. * No tricuspid stenosis. * Mild tricuspid regurgitation. * Estimated RVSP is RV-RA gradient 41 mmHg. * at least mild pulmonary hypertension. Pulmonic Valve * Pulmonic valve is not well visualized. * No pulmonic stenosis. * Trace pulmonic regurgitation. Aorta * Normally sized aortic root. Pericardium * The pericardium appears normal. IVC * The IVC is not well evaluated. - Attending Attestation I saw evaluated and examined this patient and my medical decision-making was reviewed with the Resident Physician, Fredrick Ellison. I agree with the documented findings, disposition and treatment plan as described except to any changes set forth below. We independently had [id number] contact with the patient. Patient remains comfortable. He is lying down in bed. Easily awakes. Surgery scheduled for later today. Pain in left lower extremity well controlled. On examination, patient is awake and alert. Tenderness in left hip region. No pedal edema. Heart sounds are normal. Breath sounds are normal. No wheezing. Left-sided femoral neck fracture: Acute. Status post mechanical fall. Patient is scheduled for surgery today. At intermediate risk for complications from anesthesia and surgery. Okay to proceed with surgery. Chronic diastolic congestive heart failure: Not in acute exacerbation. Continue Lasix orally Anemia: Hemoglobin 8.9 today. Could be related to fracture and blood loss related to it. Will monitor closely. Also check iron, folic acid and B12 levels. Patient may need blood transfusion postsurgery. Essential hypertension: Blood pressure elevated this morning. We will continue lisinopril and amlodipine. We will add intravenous medications for systolic blood pressure greater than 160 DVT prophylaxis with subcutaneous heparin. Moderate risk for complications. <Fredrick Ellison S - Last Filed: 04/15/18 11:29> (2) Hypertension Qualifiers: Hypertension type: essential hypertension Qualified Code(s): I10 - Essential (primary) hypertension (6) Anemia Qualifiers: Anemia type: unspecified type Qualified Code(s): D64.9 - Anemia, unspecified <Carlos Eduardo Morenojan - Last Filed: 04/15/18 14:31> (1) Hypertension Qualifiers: Hypertension type: essential hypertension Qualified Code(s): I10 - Essential (primary) hypertension (6) Anemia Qualifiers: Anemia type: unspecified type Qualified Code(s): D64.9 - Anemia, unspecified
[2018-04-15] MEDS ORDERED: hydrALAZINE 10 MG TABLET PO PRN ×2 (10:21→15:47)
[2018-04-15] MEDS: amLODIPine 5 MG TABLET PO SCH (11:22)
[2018-04-15] MEDS: Lisinopril 20 MG TABLET PO SCH (11:23)
[2018-04-15] MEDS: Furosemide 40 MG TABLET PO SCH (11:23)
[2018-04-15] MEDS ORDERED: *HR* FentaNYL (PF) 100 MCG/2 ML VIAL ONE (12:40)
[2018-04-15] MEDS ORDERED: *HR* Midazolam HCl 2 MG/2 ML VIAL ONE (12:41)
[2018-04-15] MEDS ORDERED: *HR* Propofol 200 MG/20 ML VIAL IVP ONE (12:41)
[2018-04-15] MEDS ORDERED: Lidocaine -MPF 2% 2 ML VIAL ONE (12:42)
[2018-04-15] MEDS ORDERED: Ondansetron 4 MG/2 ML VIAL ONE ×2 (12:42→14:14)
[2018-04-15] MEDS ORDERED: Dexamethasone 4 MG/ML VIAL ONE ×2 (12:42→14:14)
[2018-04-15] MEDS ORDERED: Lidocaine -MPF 4% 5 ML AMPUL ONE (12:45)
[2018-04-15] MEDS ORDERED: CeFAZolin Syr 2,000MG/20 ML 2,000 MG/20 ML SYRINGE IVPB ONE (13:39)
[2018-04-15] MEDS ORDERED: Ethanol\\Acetic Acid\\Na Ace\\Ben 1,000 ML IRRIG.SOLN IR ONE ×2 (13:43→16:26)
--- NOTE | 2018-04-15 14:32 | Orthopedic Operative Note ---
Date of procedure: 04/15/18 Pre-op diagnosis: Displaced left femoral neck fracture Post-op diagnosis: same Implants: Procedure: Left hip hemiarthroplasty Estimated blood loss: 100 cc Hardware: Metal replacement Biomet, 13 stem, +6 neck, 47 unipolar head. Procedural Notes: Displaced left femoral neck fracture Operative procedure: The patient was brought to the operating room and placed on the operating room table. After general anesthesia was administered the patient was placed in the lateral decubitus position with the operative leg up. All pressure points were padded appropriately and the head was stabilized in the neutral position. The operative extremity was prepped and draped in the sterile surgical fashion patient received IV antibiotic prior to skin incision. A standard posterior approach is made to the operative hip, the incision was made through the skin and subcutaneous tissue hemostasis was obtained with Bovie cautery. Using careful sharp dissection the fascia was identified and incised exposing the external rotators. The external rotators were released off the greater trochanter and tagged with #2 FiberWire suture. The capsule was T'd open the femoral head was removed. The femoral neck cut was made at the appropriate level. The hip was brought into internal rotation and prepared with the box estimator followed by the canal finder followed by broaching process in 20 degrees anteversion. It was broached up to the appropriate size 13. The femoral implant was impacted in place in 20 degrees of anteversion. Trial reduction found the hip to be stable with the appropriate sizes +647 unipolar head. The trials were removed and the real implants were impacted in place. The hip was reduced, the hip had full extension and full flexion of the knee was in full extension.the patient had apparent equal leg length. The hip had excellent stability with forward flexion to 90 degrees adduction of 30 degrees and internal rotation of 60 degrees. The hip had no shuck. The hip was irrigated out with 2 L of pulse irrigation. The PA close the hip. Fascia was closed with #2 PDS suture. The deep tissue was irrigated and closed deep with #1 PDS suture superficially with 0 PDS suture and skin was closed with Dermabond. The patient was placed in a sterile dressing and abduction pillow. The patient was extubated and transferred to the recovery room in stable condition. Anesthesia: GETA Surgeon: Kirk Goldsmith Was there an workers compensation claims assistant present: No Estimated blood loss (cc): 100 Condition: stable Disposition: PACU
[2018-04-15] MEDS ORDERED: EPHEDrine 50 MG/ML VIAL ONE (14:37)
[2018-04-15] MEDS: *HR* FentaNYL (PF) 100 MCG/2 ML VIAL IVP PRN ×2 (15:10→15:15)
[2018-04-15] MEDS ORDERED: MOM Conc 10 ML UD.LIQ PO PRN (15:47)
[2018-04-15] MEDS ORDERED: Ringers Solution, Lactated 1,000 ML IVC SCH (15:47)
[2018-04-15] MEDS ORDERED: Sennosides 8.6 MG TABLET PO PRN (15:47)
[2018-04-15] MEDS ORDERED: Perflutren Lipid Microsphere 1.3 ML in 0.9 % Sodium Chloride 8.7 ML IVP ONE (15:47)
[2018-04-15] MEDS ORDERED: Ondansetron 4 MG/2 ML VIAL IVP PRN (15:47)
[2018-04-15] MEDS ORDERED: Naloxone 0.4 MG/ML INJ IVP PRN (15:47)
[2018-04-15] MEDS: OXYCODONE Oral CONC 10 MG/0.5 ML ORAL.SYG SL PRN ×2 (17:27→23:58)
[2018-04-15] MEDS: Ascorbic Acid 500 MG TABLET PO SCH (17:34)
--- NOTE | 2018-04-15 17:49 | Electrocardiograph Report ---
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
--- NOTE | 2018-04-15 19:07 | Anesthesia Evaluation Post Op ---
Date of Encounter: 04/15/18 Time of Encounter: 15:45 - Discharge PostOp Status: Transfer Patient to floor (Patient's vital signs have been reviewed. Patient is stable postoperatively and has adequately recovered from anesthesia. Patient is determined to have stable airway patency and respiratory function including respiratory rate and oxygen saturation. Patient has a stable heart rate, blood pressure and adequate hydration. Patients mental status is acceptable. Patients temperature is appropriate. Pain and nausea are adequately controlled.)
[2018-04-15] MEDS ORDERED: Temazepam 15 MG CAPSULE PO PRN (21:00)
[2018-04-16] MEDS: *HR* Heparin 5,000 UNIT/ML VIAL SQ SCH ×2 (05:47→18:53)
[2018-04-16] MEDS: CarBAMazepine XR (12 hr) 100 MG TAB PO SCH ×2 (05:47→17:54)
[2018-04-16 06:36] LABS: Basophils % 0.3 %; Eosinophils # 0.4 K/mcL (0.0-0.6); Eosinophils % 6.2 %; Hematocrit 28.7 % (35.3-44.9); Hemoglobin 8.6 g/dL (11.5-15.4); Immature Granulocytes % 0.3 % (0-4); Lymphocytes # 0.7 K/mcL (0.6-4.6); Mean Platelet Volume 10.3 fL (9.4-12.4); Monocytes # 0.8 K/mcL (0.0-1.3); Monocytes % 10.8 %; Neutrophils # 5.1 K/mcL (1.6-8.9); Platelet Count 205 K/mcL (140-400); Red Blood Count 3.19 M/mcL (3.82-4.97); Red Cell Distribution Width 13.4 % (11.5-14.5); Segmented Neutrophils % 72.4 %
[2018-04-16 06:56] LABS: % Iron Saturation 13 % (15-50); BUN/Creatinine Ratio 15 (6-26); Blood Urea Nitrogen 13 mg/dL (8-23); Calcium 8.5 mg/dL (8.6-10.3); Carbon Dioxide 30 mEq/L (23-29); Chloride 102 mEq/L (98-107); Glucose 113 mg/dL (70-105); Iron 31 mcg/dL (50-170); Osmolality,Calculated 287 (280-300); Potassium 4.7 mEq/L (3.5-5.1); Sodium 138 mEq/L (136-145); Transferrin 174 mg/dL (203-362); eGFR For Non-African Americans > 60 (> 60)
[2018-04-16 07:13] LABS: Ferritin 54 ng/mL (10-120)
[2018-04-16 07:19] LABS: Vitamin B12 460 pg/mL (250-1100)
[2018-04-16 07:20] LABS: Folate > 22.3 ng/mL (3.0-16.0)
--- NOTE | 2018-04-16 07:51 | Orthopedics Progress Note ---
Date of Encounter: 04/16/18 Time of Encounter: 07:51 Subjective Principal diagnosis: left hip fracture Interval history: Patient was seen this morning doing well without complaints. Afebrile vital signs stable. Operative extremity: Neurovascularly intact Dressing clean dry and intact Calves nontender Assessment and plan: Continue with postoperative care Hematocrit 28 Objective Vital signs: Vital Signs Temp Pulse Resp BP Pulse Ox 04/16/18 06:46 98.6 F 76 18 151/75 96 04/16/18 04:10 97.8 F 95 14 134/72 97 04/16/18 00:33 96.9 F L 76 15 121/66 96 04/15/18 21:00 96 04/15/18 18:51 98.4 F 93 18 118/72 95 04/15/18 18:49 98.4 F 81 15 109/70 94 04/15/18 18:05 98.3 F 73 15 114/73 93 04/15/18 17:10 98.3 F 92 17 127/80 94 04/15/18 16:40 89 132/82 92 04/15/18 16:30 98.2 F 89 16 132/82 92 04/15/18 16:04 98.2 F 90 18 126/83 93 04/15/18 15:40 100.1 F H 88 16 127/76 95 04/15/18 15:30 100.1 F H 88 16 130/69 94 04/15/18 15:20 87 16 123/83 95 04/15/18 15:10 87 16 144/85 96 04/15/18 15:00 99.5 F 89 18 143/84 95 04/15/18 11:07 99.1 F 79 20 187/92 94 Intake and Output 04/15/18 04/15/18 04/16/18 15:59 23:59 07:59 Intake Total 100 / 100 Output Total 100 / 100 350 / 350 225 / 225 Balance -100 / -100 -250 / -250 -225 / -225 Intake: IV Fluids 100 / 100 Ancef 2,000 MG In 0.9 % Sodium 100 / 100 Chloride 100 ML @ 200 mls/hr IVPB Q8H CLAUDIA Rx#:[id number] Output: Estimated Blood Loss 100 / 100 Catheter 350 / 350 225 / 225 - Labs CBC & BMP: 04/16/18 06:13 04/16/18 06:13 Labs: Abnormal lab results RBC 3.19 M/mcL (3.82-4.97) L 04/16/18 06:13 Hgb 8.6 g/dL (11.5-15.4) L 04/16/18 06:13 Hct 28.7 % (35.3-44.9) L 04/16/18 06:13 MCH 27.0 pg (28.0-33.3) L 04/16/18 06:13 MCHC 30.0 g/dL (31.6-35.5) L 04/16/18 06:13 Carbon Dioxide 30 mEq/L (23-29) H 04/16/18 06:13 Glucose 113 mg/dL (70-105) H 04/16/18 06:13 Calcium 8.5 mg/dL (8.6-10.3) L 04/16/18 06:13 Iron 31 mcg/dL (50-170) L 04/16/18 06:13 % Saturation 13 % (15-50) L 04/16/18 06:13 Transferrin 174 mg/dL (203-362) L 04/16/18 06:13 Folate > 22.3 ng/mL (3.0-16.0) H 04/16/18 06:13 - VTE Deep Vein Thrombosis/Pulmonary Embolism Present on Admission: No Consult Discharge Plan - Plan Referrals: Estrada Hooper DO [Primary Care Provider] -
[2018-04-16] MEDS: Ascorbic Acid 500 MG TABLET PO SCH ×2 (09:18→17:55)
[2018-04-16] MEDS: amLODIPine 5 MG TABLET PO SCH (09:18)
[2018-04-16] MEDS: OXYCODONE Oral CONC 10 MG/0.5 ML ORAL.SYG SL PRN ×3 (09:19→23:32)
[2018-04-16] MEDS: Lisinopril 20 MG TABLET PO SCH (09:19)
[2018-04-16] MEDS: Aspirin Enteric Coated 81 MG Tablet PO SCH (09:20)
[2018-04-16] MEDS: Folic Acid 1 MG TABLET PO SCH (09:21)
[2018-04-16] MEDS: Furosemide 40 MG TABLET PO SCH (09:21)
[2018-04-16] MEDS: Multivit/Ca/Min/Fe/FA 1 TAB TABLET PO SCH (09:22)
--- NOTE | 2018-04-16 11:24 | Internal Med Progress Note ---
<Campos,Faraaz - Last Filed: 04/16/18 13:06> Hospitalist Progress Note - Encounter Date of Encounter: 04/16/18 Time of Encounter: 11:43 - Subjective Interval History: Pt seen and examined resting in chair in room. Currently in a lot of pain s/p left hip hemiarthroplasty, and would not respond to most questions secondary to pain. AOx1. Denies headache, chest pain, SOB, abdominal pain. - Exam Vitals: Temp Pulse Resp BP Pulse Ox 99.7 F H 77 18 115/70 90 04/16/18 11:00 04/16/18 11:00 04/16/18 11:00 04/16/18 11:00 04/16/18 11:00 Exam: GEN: AOx1; moderate distress secondary to pain; Sitting in chair next to bed HEENT: Atraumatic, Normocephalic, EOMI CARDIO: RRR, no murmurs, rubs, gallups RESP: CTAB, no wheezes, rales, rhonchi ABD: Soft, non-tender, non-distended NEURO: No focal deficits, CN 2-12 intact EXT: No lower extremity swelling b/l; Limited eval secondary to left hip pain - Assessment and Plan (1) Left displaced femoral neck fracture Current Visit: Yes Status: Acute Assessment and Plan: This is an 87 y/o F with PMHx HTN, trigeminal neuralgia who presents s/p mechanical fall. Pt denies syncopal episode, head trauma. Endorses pain in her left hip. Hip XR indicated Left Femoral Neck Fracture. Currently in pain PLAN: S/P Left Hip Hemiarthroplasty Pain control PT/OT Consult SW Consult (2) Anemia Current Visit: Yes Status: Acute Assessment and Plan: Hb/Hct = 9.9/33.4 on presentation; MCV = 91.5 Hb this morning = 8.6 PLAN: Cont to monitor Repeat CBC tomorrow Cont Ferrous Sulfate (3) Hypokalemia Current Visit: No Status: Acute Assessment and Plan: K = 3.3 on presentation; Currently 4.7 today PLAN: Cont Potassium Chloride (4) Hypertension Current Visit: No Status: Chronic Assessment and Plan: BP this morning = 151/75 PLAN: Monitor vitals Cont Amlodipine, Lisinpril, Lopressor, and Lasix. (5) Trigeminal neuralgia Current Visit: No Status: Chronic Assessment and Plan: Hx Trigeminal Neuralgia PLAN: Cont Carbamazepine DVT Prophylaxis: Heparin SQ 5000U Q12h - Time Spent with Patient Total time spent is greater than 50% in coordination of care (as documented) at patient's floor/unit and/or counseling patient: less than 15 minutes Plan of Care Discussed with: family Internal Medicine: Result - Labs CBC & Chem 7: 04/16/18 06:13 04/16/18 06:13 Labs: Short CBC 04/16/18 Range/Units 06:13 WBC 7.0 (4.3-11.1) K/mcL Hgb 8.6 L (11.5-15.4) g/dL Hct 28.7 L (35.3-44.9) % Plt Count 205 (140-400) K/mcL Neutrophils # 5.1 (1.6-8.9) K/mcL BMP 04/16/18 06:13 Sodium 138 Potassium 4.7 Chloride 102 Carbon Dioxide 30 H BUN 13 Creatinine 0.86 Glucose 113 H Calcium 8.5 L - ABG Interpretation ABG results: PT/INR, D-dimer PT 11.8 Seconds (9.4-12.1) 04/13/18 14:03 - Impressions Impressions Hip X-Ray 04/15/18 00:01 IMPRESSION: No evident complication status post left bipolar hip arthroplasty. D/ / 04/15/2018 15:42:31 Fabián Beckford MD / ayanna Interpreting Provider: Fabián Beckford MD - VTE Deep Vein Thrombosis/Pulmonary Embolism Present on Admission: No Consult Discharge Plan - Plan Referrals: Estrada Hooper DO [Primary Care Provider] - <Jogre Moreno - Last Filed: 04/16/18 13:55> Hospitalist Progress Note - Encounter Date of Encounter: 04/16/18 Time of Encounter: 09:45 - Exam Vitals: Temp Pulse Resp BP Pulse Ox 99.7 F H 77 18 115/70 90 04/16/18 11:00 04/16/18 11:00 04/16/18 11:00 04/16/18 11:00 04/16/18 11:00 - Assessment and Plan (1) Left displaced femoral neck fracture Current Visit: Yes Status: Acute (2) Hypertension Current Visit: No Status: Chronic (3) Trigeminal neuralgia Current Visit: No Status: Chronic (4) Hypokalemia Current Visit: No Status: Acute (5) DVT prophylaxis Current Visit: Yes Status: Acute (6) Anemia Current Visit: Yes Status: Acute - Time Spent with Patient Total time spent is greater than 50% in coordination of care (as documented) at patient's floor/unit and/or counseling patient: Internal Medicine: Result - Labs CBC & Chem 7: 04/16/18 06:13 04/16/18 06:13 Labs: Short CBC 04/16/18 Range/Units 06:13 WBC 7.0 (4.3-11.1) K/mcL Hgb 8.6 L (11.5-15.4) g/dL Hct 28.7 L (35.3-44.9) % Plt Count 205 (140-400) K/mcL Neutrophils # 5.1 (1.6-8.9) K/mcL BMP 04/16/18 06:13 Sodium 138 Potassium 4.7 Chloride 102 Carbon Dioxide 30 H BUN 13 Creatinine 0.86 Glucose 113 H Calcium 8.5 L - ABG Interpretation ABG results: PT/INR, D-dimer PT 11.8 Seconds (9.4-12.1) 04/13/18 14:03 - Impressions Impressions Hip X-Ray 04/15/18 00:01 IMPRESSION: No evident complication status post left bipolar hip arthroplasty. D/ / 04/15/2018 15:42:31 Fabián Beckford MD / ayanna Interpreting Provider: Fabián Beckford MD - Attending Attestation I saw evaluated and examined this patient and my medical decision-making was reviewed with the Resident Physician, Pamela Campos. I agree with the documented findings, disposition and treatment plan as described except to any changes set forth below. We independently had [id number] contact with the patient. Patient having a lot of pain this morning in her left hip region since she got up from bed. Underwent surgery yesterday evening without any complications. No fevers or chills reported overnight. She just received pain medication. She reports that her current pain as 10 out of 10 in severity. Left-sided femoral neck fracture: Acute. After a mechanical fall. Status post left hip hemiarthroplasty postop day 1. Continue supportive care. Pain control. Patient is on oxycodone sublingually at 5 mg and 10 mg doses. Continue gentle IV hydration. Anticoagulation with subcutaneous heparin. Physical therapy. Chronic diastolic congestive heart failure: On oral Lasix. Not in acute exacerbation. Anemia: Hemoglobin 8.6 today. We will continue to monitor. Patient does have iron deficiency. We will place her on iron supplements. Essential hypertension: Blood pressure is better controlled at this time. DVT prophylaxis with subcutaneous heparin. Moderate risk for complications. <Pamela Campos - Last Filed: 04/16/18 13:06> (2) Anemia Qualifiers: Anemia type: unspecified type Qualified Code(s): D64.9 - Anemia, unspecified (4) Hypertension Qualifiers: Hypertension type: essential hypertension Qualified Code(s): I10 - Essential (primary) hypertension <Jorge Moreno - Last Filed: 04/16/18 13:55> (2) Hypertension Qualifiers: Hypertension type: essential hypertension Qualified Code(s): I10 - Essential (primary) hypertension (6) Anemia Qualifiers: Anemia type: unspecified type Qualified Code(s): D64.9 - Anemia, unspecified
[2018-04-16] MEDS ORDERED: Acetaminophen IV 1,000 MG/100 ML INFUS..BTL IVPB ONE (16:50)
[2018-04-17] MEDS: *HR* Heparin 5,000 UNIT/ML VIAL SQ SCH (05:55)
[2018-04-17] MEDS: CarBAMazepine XR (12 hr) 100 MG TAB PO SCH (05:55)
[2018-04-17 06:28] LABS: Basophils % 0.4 %; Eosinophils # 0.4 K/mcL (0.0-0.6); Eosinophils % 5.3 %; Hematocrit 27.7 % (35.3-44.9); Hemoglobin 8.3 g/dL (11.5-15.4); Immature Granulocytes % 0.4 % (0-4); Lymphocytes # 0.5 K/mcL (0.6-4.6); Lymphocytes % 6.6 %; Mean Corpuscular Hemoglobin 27.2 pg (28.0-33.3); Mean Corpuscular Volume 90.8 fL (83.0-100.0); Mean Platelet Volume 10.6 fL (9.4-12.4); Monocytes # 0.8 K/mcL (0.0-1.3); Monocytes % 10.3 %; Neutrophils # 6.3 K/mcL (1.6-8.9); Platelet Count 191 K/mcL (140-400); Red Blood Count 3.05 M/mcL (3.82-4.97); Red Cell Distribution Width 13.7 % (11.5-14.5)
--- NOTE | 2018-04-17 06:45 | Orthopedics Progress Note ---
Date of Encounter: 04/17/18 Time of Encounter: 06:44 Subjective Principal diagnosis: left hip fracture Interval history: Patient was seen this morning doing well without complaints. Afebrile vital signs stable. Operative extremity: Neurovascularly intact Dressing clean dry and intact Calves nontender Assessment and plan: Continue with postoperative care Hematocrit 27 stable for discharge Objective Vital signs: Vital Signs Temp Pulse Resp BP Pulse Ox 04/17/18 03:40 98.1 F 75 14 125/76 99 04/16/18 23:11 98.0 F 83 14 134/74 97 04/16/18 21:00 93 04/16/18 18:26 97.2 F L 86 12 123/72 95 04/16/18 14:47 98.3 F 90 18 131/80 95 04/16/18 11:00 99.7 F H 77 18 115/70 90 04/16/18 09:30 92 04/16/18 06:46 98.6 F 76 18 151/75 96 Intake and Output 04/16/18 04/16/18 04/17/18 15:59 23:59 07:59 Intake Total 100 / 100 800 / 800 Output Total 300 / 300 Balance -200 / -200 800 / 800 Intake: IV Fluids 100 / 100 Ofirmev 1,000 mg/100 ml 1,000 100 / 100 mg In 100 ml @ 400 mls/hr IVPB ONCE ONE Rx#:[id number] Oral 100 / 100 700 / 700 Output: Urine 300 / 300 Other: Meal Lunch Dinner Percent of Meal Consumed 10% 5% # Voids 1 - Labs CBC & BMP: 04/17/18 05:53 04/16/18 06:13 Labs: Abnormal lab results RBC 3.05 M/mcL (3.82-4.97) L 04/17/18 05:53 Hgb 8.3 g/dL (11.5-15.4) L 04/17/18 05:53 Hct 27.7 % (35.3-44.9) L 04/17/18 05:53 MCH 27.2 pg (28.0-33.3) L 04/17/18 05:53 MCHC 30.0 g/dL (31.6-35.5) L 04/17/18 05:53 Lymphocytes # 0.5 K/mcL (0.6-4.6) L 04/17/18 05:53 Carbon Dioxide 30 mEq/L (23-29) H 04/16/18 06:13 Glucose 113 mg/dL (70-105) H 04/16/18 06:13 Calcium 8.5 mg/dL (8.6-10.3) L 04/16/18 06:13 Iron 31 mcg/dL (50-170) L 04/16/18 06:13 % Saturation 13 % (15-50) L 04/16/18 06:13 Transferrin 174 mg/dL (203-362) L 04/16/18 06:13 Folate > 22.3 ng/mL (3.0-16.0) H 04/16/18 06:13 - VTE Deep Vein Thrombosis/Pulmonary Embolism Present on Admission: No Consult Discharge Plan - Plan Referrals: Estrada Hooper DO [Primary Care Provider] -
[2018-04-17 06:46] LABS: BUN/Creatinine Ratio 20 (6-26); Blood Urea Nitrogen 18 mg/dL (8-23); Calcium 8.5 mg/dL (8.6-10.3); Carbon Dioxide 26 mEq/L (23-29); Chloride 101 mEq/L (98-107); Glucose 109 mg/dL (70-105); Osmolality,Calculated 284 (280-300); Potassium 4.6 mEq/L (3.5-5.1); Sodium 136 mEq/L (136-145); eGFR For Non-African Americans 60 (> 60)
[2018-04-17] MEDS: Aspirin Enteric Coated 81 MG Tablet PO SCH (09:38)
[2018-04-17] MEDS: Multivit/Ca/Min/Fe/FA 1 TAB TABLET PO SCH (09:38)
[2018-04-17] MEDS: Lisinopril 20 MG TABLET PO SCH (09:38)
[2018-04-17] MEDS: Folic Acid 1 MG TABLET PO SCH (09:38)
[2018-04-17] MEDS: amLODIPine 5 MG TABLET PO SCH (09:39)
[2018-04-17] MEDS: Ascorbic Acid 500 MG TABLET PO SCH (09:39)
[2018-04-17] MEDS: Furosemide 40 MG TABLET PO SCH (09:39)
[2018-04-17] MEDS: OXYCODONE Oral CONC 10 MG/0.5 ML ORAL.SYG SL PRN ×2 (09:40→15:54)
--- NOTE | 2018-04-17 10:10 | Discharge Summary ---
<Pamela Campos - Last Filed: 04/17/18 12:42> - NOTES TO OUTPATIENT PROVIDER Notes to Outpatient Provider: Plan to discharge to [facility] for [facility] Therapy. Will discharge with 2-3 days Percocet for pain control. Also will discharge on BID Ferrous Sulfate. Follow up with CBC in 1 week at PCP follow up Date of Encounter: 04/17/18 Time of Encounter: 10:10 - Discharge Diagnosis (1) Left displaced femoral neck fracture Priority: Primary Status: Acute (2) Anemia Priority: Secondary Status: Acute Qualifiers: Anemia type: unspecified type Qualified Code(s): D64.9 - Anemia, unspecified (3) Hypokalemia Priority: Secondary Status: Acute (4) Hypertension Priority: Secondary Status: Chronic Qualifiers: Hypertension type: essential hypertension Qualified Code(s): I10 - Essential (primary) hypertension (5) Trigeminal neuralgia Priority: Secondary Status: Chronic Hospital course: This is an 87 y/o F with PMHx HTN, trigeminal neuralgia who presents s/p mechanical fall. Notes she was bending down to throw out the trash, and lost her balance. Pt denies syncopal episode, head trauma. Endorses pain in her left hip. Hip XR indicated Left Femoral Neck Fracture. In ED: - CXR and Hip XR: Mild b/l pleural effusions and basilar atelectasis vs pneumonia; decreased mineral bone density; acute mildly displaced and angulated left femoral neck fracture - Head CT: No acute intracranial abnormality; Chronic Microvascular ischemic changes - [facility]opedics saw patient, and she was scheduled for left hip hemiarthroplasty. Admitted for surgery. Pt taken to OR where left hip hemiarthroplasty was performed. Post-op course was uncomplicated. Pt complained of left hip pain on POD#1, but pain was controlled with adequate pain medication. Anemia: Pt noted to be anemic pre-op and post-op. Lab work suggests Iron deficiency anemia. Started Ferrous Sulfate 325mg BID. Will cont for 10 more days. Hypokalemia: Pt noted to be hypokalemic. Repleted with KCl. Pt currently stable for discharge. Will discharge to SNF for PT. Discharge discussed with: family - Time Spent with Patient Total time spent providing and/or coordinating discharge services: Less than 30 minutes - Discharge Medications Prescriptions: OxyCODONE/APAP 5/325 [Percocet 5/325 MG] 1 - 2 each PO Q6HR PRN 3 Days #12 tablet PRN Reason: Pain Docusate [Colace] 100 mg PO BID 5 Days #10 capsule Enoxaparin [Lovenox] 40 mg SQ DAILY #10 syr Ferrous Sulfate 325 mg PO BIDWM 14 Days #28 tablet Home Medications: Lisinopril [Zestril] 40 mg PO DAILY 07/07/15 [History] Potassium Chloride [Klor-Con Sprinkle] 10 meq PO DAILY 07/07/15 [History] amLODIPine [Norvasc] 7.5 mg PO DAILY 06/16/16 [History] CarBAMazepine [Carbamazepine ER] 400 mg PO Q12H 07/08/16 [History] Furosemide [Lasix] 40 mg PO QAM 07/08/16 [History] Aspirin [Adult Aspirin Regimen] 81 mg PO DAILY 11/01/17 [History] Folic Acid 1 mg PO DAILY 11/01/17 [History] Metoprolol Tartrate [Lopressor] 25 mg PO BID 04/14/18 [History] Docusate [Colace] 100 mg PO BID 5 Days #10 capsule 04/17/18 [Rx] Enoxaparin [Lovenox] 40 mg SQ DAILY #10 syr 04/17/18 [Rx] Ferrous Sulfate 325 mg PO BIDWM 14 Days #28 tablet 04/17/18 [Rx] OxyCODONE/APAP 5/325 [Percocet 5/325 MG] 1 - 2 each PO Q6HR PRN 3 Days #12 tablet 04/17/18 [Rx] Allergies/Adverse Reactions: Allergy/AdvReac Type Severity Reaction Status Date / Time baclofen Allergy Hives Verified 07/08/16 15:14 clindamycin Allergy Hives Verified 07/08/16 15:14 clonidine Allergy Hives Verified 07/08/16 15:14 codeine Allergy Hives Verified 07/08/16 15:14 hydrocodone [From Vicodin] Allergy Hives Verified 07/08/16 15:14 lovastatin Allergy Hives Verified 07/08/16 15:14 gabapentin AdvReac Shakiness Verified 06/16/16 00:22 Date of admission: 04/13/18 18:39 Primary care physician: Estrada Hooper DO Consults: 04/13/18 14:52 Consult to Orthopedic Surgery [CONS] Stat Consulting Provider: [facility] Reason for Consult: Left femoral neck fracture Time Notified: 14:52 Call Completed: Yes 04/13/18 18:38 Consult to Stevedoring Supervisor [CONS] Routine Reason for SW Consult: need for rehab after d/c 04/15/18 10:22 Consult to Occupational Therapy [CONS] Routine Comment: Evaluate, develop and implement POC Reason for Consult: ptot eval Does patient have active BEDREST order?: No Is patient medically & hemodynamically stable?: Yes Patient assessed for mobility or mobilized this visit?: No Consult to Physical Therapy [CONS] Routine Comment: Evaluate, develop and implement POC Reason for Consult: ptot eval Does patient have active BEDREST order?: No Is patient medically & hemodynamically stable?: Yes Patient assessed for mobility or mobilized this visit?: No 04/15/18 15:47 Consult to Nurse Navigator [CONS] Routine Comment: ortho navigator Consult to Occupational Therapy [CONS] Routine Comment: Evaluate, develop and implement POC Reason for Consult: total hip replacement Does patient have active BEDREST order?: No Is patient medically & hemodynamically stable?: Yes Consult to Physical Therapy [CONS] Routine Comment: Evaluate, develop and implement POC Reason for Consult: total hip replacement Does patient have active BEDREST order?: No Is patient medically & hemodynamically stable?: Yes Consult to Stevedoring Supervisor [CONS] Routine Reason for SW Consult: post op joint replacement RT Post Op Consult [CONS] Routine Discharging clinician: Pamela Campos Anticipated date of discharge: 04/17/18 - Constitutional Vitals: Temp Pulse Resp BP Pulse Ox 98.4 F 81 20 138/74 95 04/17/18 06:47 04/17/18 06:47 04/17/18 06:47 04/17/18 06:47 04/17/18 06:47 General appearance: Present: A&O X 3, answers questions appropriately Exam: GEN: AOx3, NAD; Pt resting comfortably in chair next to bed in room. Accompanied by son HEENT: Atraumatic, Normocephalic, EOMI, Mucous membranes moist CARDIO: RRR, no murmurs, rubs, gallops RESP: CTAB, no wheezes, rales, rhonchi ABD: Soft, non-tender, non-distended NEURO: NAD; decreased pain from yestterday. CN 2-12 intact; no focal deficits EXT: No lower extremity swelling b/l; tender to palpation near upper hip - Patient Status Disposition: Transfer SNF Condition: Fair Functional capacity at discharge: uses cane/walker Overall status at discharge: patient is progressing back to baseline - Discharge Instructions Follow Up With: Estrada Hoopre DO [Primary Care Provider] - - Diet and Activity Activity: as per physical therapy Diet: low fat, low cholesterol, low salt diet - VTE Deep Vein Thrombosis/Pulmonary Embolism Present on Admission: No <Tiffaniecyndie - Last Filed: 04/17/18 13:29> Date of Encounter: 04/17/18 Time of Encounter: 09:55 - Discharge Diagnosis (1) Left displaced femoral neck fracture Status: Acute (2) Hypertension Status: Chronic Qualifiers: Hypertension type: essential hypertension Qualified Code(s): I10 - Essentia l (primary) hypertension (3) Trigeminal neuralgia Status: Chronic (4) Hypokalemia Status: Acute (5) DVT prophylaxis Status: Acute (6) Anemia Status: Acute Qualifiers: Anemia type: unspecified type Qualified Code(s): D64.9 - Anemia, unspecified Hospital course: Ms. Macedo is a 87 year old female - Time Spent with Patient Total time spent providing and/or coordinating discharge services: Less than 30 minutes (10 min) Date of admission: 04/13/18 18:39 Primary care physician: Estrada Hooper DO Consults: 04/13/18 14:52 Consult to Orthopedic Surgery [CONS] Stat Consulting Provider: [facility] Reason for Consult: Left femoral neck fracture Time Notified: 14:52 Call Completed: Yes 04/13/18 18:38 Consult to Stevedoring Supervisor [CONS] Routine Reason for SW Consult: need for rehab after d/c 04/15/18 10:22 Consult to Occupational Therapy [CONS] Routine Comment: Evaluate, develop and implement POC Reason for Consult: ptot eval Does patient have active BEDREST order?: No Is patient medically & hemodynamically stable?: Yes Patient assessed for mobility or mobilized this visit?: No Consult to Physical Therapy [CONS] Routine Comment: Evaluate, develop and implement POC Reason for Consult: ptot eval Does patient have active BEDREST order?: No Is patient medically & hemodynamically stable?: Yes Patient assessed for mobility or mobilized this visit?: No 04/15/18 15:47 Consult to Nurse Navigator [CONS] Routine Comment: ortho navigator Consult to Occupational Therapy [CONS] Routine Comment: Evaluate, develop and implement POC Reason for Consult: total hip replacement Does patient have active BEDREST order?: No Is patient medically & hemodynamically stable?: Yes Consult to Physical Therapy [CONS] Routine Comment: Evaluate, develop and implement POC Reason for Consult: total hip replacement Does patient have active BEDREST order?: No Is patient medically & hemodynamically stable?: Yes Consult to Stevedoring Supervisor [CONS] Routine Reason for SW Consult: post op joint replacement RT Post Op Consult [CONS] Routine - Constitutional Vitals: Temp Pulse Resp BP Pulse Ox 98.4 F 73 18 126/74 94 04/17/18 12:36 04/17/18 12:36 04/17/18 12:36 04/17/18 12:36 04/17/18 12:36 - Attending Attestation I saw evaluated and examined this patient and my medical decision-making was reviewed with the Resident Physician, Pamela Campos. I agree with the documented findings, disposition and treatment plan as described except to any changes set forth below. We independently had [id number] contact with the patient. 87-year-old female patient with history of trigeminal neuralgia, hypertension, chronic diastolic CHF was hospitalized here with of a fall resulting in left femoral neck fracture. Patient was evaluated by orthopedics and underwent left hip hemiarthroplasty on 04/15. She has been doing well since then. She does have a lot of pain in her left hip with movement but it is controlled with current pain medications. Patient will be discharged to skilled rehabilitation to continue her recovery. On exam, patient is awake and alert. Sitting up in chair. Does have tenderness the left hip. S1 and S2 are normal. Breath sounds are normal. No pedal edema noted.
[2018-04-17 12:38] VITALS: BP 126/74
--- NOTE | 2018-04-17 13:37 | Physician Discharge Referral ---
ExtendedCare Referral Info Transfer To: SNF/ECF Provider in Charge after Transfer: PCP Institutional Level of Care: Skilled - Diagnosis (1) Left displaced femoral neck fracture Priority: Primary Status: Acute (2) Anemia Priority: Secondary Status: Acute (3) Hypokalemia Priority: Secondary Status: Acute (4) Hypertension Priority: Secondary Status: Chronic (5) Trigeminal neuralgia Priority: Secondary Status: Chronic Prognosis: Fair Aware of Diagnosis: Patient, Family Aware of Prognosis: Patient, Family - Transfer Medications Prescriptions: OxyCODONE/APAP 5/325 [Percocet 5/325 MG] 1 - 2 each PO Q6HR PRN 3 Days #12 tablet PRN Reason: Pain Docusate [Colace] 100 mg PO BID 5 Days #10 capsule Enoxaparin [Lovenox] 40 mg SQ DAILY #10 syr Ferrous Sulfate 325 mg PO BIDWM 14 Days #28 tablet Home Medications: Lisinopril [Zestril] 40 mg PO DAILY 07/07/15 [History] Potassium Chloride [Klor-Con Sprinkle] 10 meq PO DAILY 07/07/15 [History] amLODIPine [Norvasc] 7.5 mg PO DAILY 06/16/16 [History] CarBAMazepine [Carbamazepine ER] 400 mg PO Q12H 07/08/16 [History] Furosemide [Lasix] 40 mg PO QAM 07/08/16 [History] Aspirin [Adult Aspirin Regimen] 81 mg PO DAILY 11/01/17 [History] Folic Acid 1 mg PO DAILY 11/01/17 [History] Metoprolol Tartrate [Lopressor] 25 mg PO BID 04/14/18 [History] Docusate [Colace] 100 mg PO BID 5 Days #10 capsule 04/17/18 [Rx] Enoxaparin [Lovenox] 40 mg SQ DAILY #10 syr 04/17/18 [Rx] Ferrous Sulfate 325 mg PO BIDWM 14 Days #28 tablet 04/17/18 [Rx] OxyCODONE/APAP 5/325 [Percocet 5/325 MG] 1 - 2 each PO Q6HR PRN 3 Days #12 tablet 04/17/18 [Rx] Allergies/Adverse Reactions: Allergy/AdvReac Type Severity Reaction Status Date / Time baclofen Allergy Hives Verified 07/08/16 15:14 clindamycin Allergy Hives Verified 07/08/16 15:14 clonidine Allergy Hives Verified 07/08/16 15:14 codeine Allergy Hives Verified 07/08/16 15:14 hydrocodone [From Vicodin] Allergy Hives Verified 07/08/16 15:14 lovastatin Allergy Hives Verified 07/08/16 15:14 gabapentin AdvReac Shakiness Verified 06/16/16 00:22 - Respiratory Orders None Smoking Cessation: Smoking cessation has been advised. For more information, call the [place] Tobacco Quit Line at 7-851-UAFV-NOW. - Advance Directives Code Status: Full Code - Mobility Orders Ambulate (Per PT) - Rehabiliation Orders Rehab Potential: Fair Rehab Orders: ROM Exercises, Evaluation for Physical Therapy, Evaluation for Occupational Therapy - Diet Orders Cardiac CERTIFICATION: I certify that the transfer of the above named patient to an Extended Care Facility is necessary for the continuing treatment of the diagnosis listed. The above information is true and accurate reflection of patient's current condition. Confidential - Redisclosure prohibited without a patient's written consent.
== END 2018-04-17 16:10 | DRG 470 ==
LOC: 3NENU 13:37 → EMEROOARM 13:37 → 3NENU 17:44 → SUATTDRO 18:39
PROVIDERS: ADMIT Internal Medicine; ATTEND Internal Medicine